=== PATIENT | female | born 1950 | race Caucasian/White ===

== ENCOUNTER 2023-02-26 11:40 | Emergency (ER) | payer MEDICARE, BC, MEDICAID, SELFPAY ==
[2023-02-26 11:48] VITALS: BP 159/79; PULSE 96; RESP 18; TEMP 36.9; O2SAT 99; BMI 22.2
--- NOTE | 2023-02-26 11:59 | CRLHL7_ITS ---
For Patients: As a result of the Century Cures Act, medical imaging exams and procedure reports are released immediately into your electronic medical record. You may view this report before your referring provider. If you have questions, please contact your health care provider. INDICATION: Right lower leg pain. FINDINGS: Two views of the right tibia and fibula were obtained. There is no acute fracture seen or dislocation. There has been resection of the midportion of the shaft of fibula. IMPRESSION: No acute bone abnormality. Dictated by Alexandre Esquivel MD @ 02/26/2023 12:49:13 PM (Electronically Signed)
--- NOTE | 2023-02-26 11:59 | CRLHL7_ITS ---
For Patients: As a result of the Century Cures Act, medical imaging exams and procedure reports are released immediately into your electronic medical record. You may view this report before your referring provider. If you have questions, please contact your health care provider. INDICATION: Leg pain and swelling. TECHNIQUE: Ultrasound venous duplex lower left extremity. Compression venous exam was performed using garcia-scale, color Doppler, and spectral Doppler analysis. COMPARISON: None. FINDINGS: Deep veins: Fully compressible with normal color Doppler blood flow. Superficial veins: Greater saphenous vein is fully compressible. No popliteal cyst. IMPRESSION: No evidence of DVT. Dictated by Carlos Genao MD @ 02/26/2023 2:08:04 PM (Electronically Signed)
--- NOTE | 2023-02-26 12:08 | ED.GENADULT ---
HPI - General Adult General Time Seen by Provider: 12:08 Date Seen: 02/26/23 Chief complaint: Extremity Pain/Injury, Lower Stated complaint: L leg swelling Time Seen by Provider: 02/26/23 11:44 History of Present Illness HPI narrative: This is a pleasant 72-year-old female accompanied to the ER today by her daughter. 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 She had skin graft and bone graft taken from both of her legs. Treatment was about 3 years ago. She also reports a history of anxiety/depression. In review of her past medical history she also has his a history of recurrent pancreatitis, pancreatic insufficiency, hypertension, dyslipidemia, alcohol abuse, L2 compression fracture, vitamin-D deficiency. She is currently on Ativan and sertraline. No other meds. She is unsure of her allergies, probably penicillin and possibly some others. She reports that she has chronic scars on both of her legs because of her bone graft surgeries. She also has and chronic nonhealing scab on the scar over her left lateral calf. She does get pain in her calves and lower legs from time to time ever since she had her bone graft. She says ?I know I need to see my surgeon about that. ? She says she has been having pain affecting her mid anterior and distal moreno/tibia for about a month. It has been getting slowly, steadily worse. She does not have any recent twisting or injury or fall. No numbness or tingling or weakness. No pain in her knee, ankle, or foot. She does have a little bit of swelling on the anterior lower moreno. In particular it has gotten more noticeable over the past 1-3 days. She has also noticed small red streak of erythema on the anterior moreno. She has not had a fever. No real change in the chronic scab on the lateral side of her leg. She does have about a 1 cm scab that just will not heal. No definite new redness around that. No purulent drainage. No definite lateral or posterior erythema. No pain down into her foot. Pain has gotten so intense that she has feeling like she can barely bear weight. She has been taking ibuprofen, at least 3 times a day, but is no longer helpful. No other color changes cyanosis. No pain in her right leg. No back pain. No fever. She does not have diabetes or immunosuppression. Related Data Home Medications Medication Instructions Recorded Confirmed lorazepam 0.5 mg tablet PO 02/26/23 sertraline 100 mg tablet 100 mg PO DAILY 02/26/23 02/26/23 Previous Rx's Medication Instructions Recorded cephalexin 500 mg capsule 500 mg PO QID 7 days #28 caps 02/26/23 cephalexin 500 mg capsule 500 mg PO QID 7 days #28 caps 02/26/23 Allergies Allergy/AdvReac Type Severity Reaction Status Date / Time Penicillins Allergy Intermediate Verified 02/26/23 12:04 Exam Narrative: Exam Narrative: Constitutional: Appears well-developed and well-nourished. Alert. Conversant. Non toxic. Polite. Daughter attentively at her side. HENT: Head: Atraumatic. Nose: Nose normal. Mouth/Throat: Wearing a face mask and prefers not to remove it. No oropharyngeal complaints. Eyes: Conjunctivae normal. EOM normal. Pupils equal, round, and reactive to light. No scleral icterus. Neck: Normal range of motion. Neck supple. No tracheal deviation present. No JVD Cardiovascular: Normal rate, regular rhythm. No gallop. No friction rub. No murmur heard. Symmetric PT and DP artery pulses . Skin of both feet is warm, pink, well perfused, with normal cap refill. Pulmonary/Chest: Effort normal. No stridor. No respiratory distress. No wheezes. No rales. No rhonchi . Abdominal: Soft. Bowel sounds normal. No distension. No mass. No tenderness. No rebound. No guarding. Musculoskeletal: RUE: Normal range of motion. No tenderness. No deformity LUE: Normal range of motion. No tenderness. No deformity RLE: Normal range of motion. No edema. No tenderness. No deformity. She has scars on her anterolateral thigh from skin graft harvest and on her lateral lower leg from previous bone graft harvest. Scars appear to be well-healed. LLE: Normal range of motion In her hip, knee, ankle. She has a scar on her anterior lateral thigh from skin graft is well healed. She has a scar on her lateral calf. This does appear to be dehisced wound which is healed by secondary intention. The scar is roughly 2 x 4 cm in oval shape. At the distal/posterior rim of this there is a 1 cm area of scab that is apparently the chronic wound will not heal. There is no definite surrounding erythema there. Perhaps a little bit of pinkness of the scar, but that maybe it is chronic appearance. She is tender over the distal half of the tibia and fibula. There is a subtle area of erythema. It appears to be a streak almost like ascending lymphangitis extending from the midportion of the anterior moreno, medial to the tibial spine extending distally and aligned down to the distal moreno. An is a few cm proximal to the ankle. There is no apparent redness or swelling of the ankle, malleoli, dorsum of the foot, or toes. She does have chronic deformity of her toes and hammertoe. No signs of toe infection, ulcers, gangrene. Subtle edema affecting the distal 1/2 of her moreno down to the ankle. No foot edema. Lymph: No cervical adenopathy. Neurological: Alert and oriented to person, place, and time. Normal strength. CN II-VII intact. No sensory deficit. GCS eye subscore is 4. GCS verbal subscore is 5. GCS motor subscore is 6. Normal coordination . Intact distal toe wiggling, sensory function including the medial and lateral malleolus, dorsal 1st webspace, sole of the foot. Skin: Skin is warm and dry. No rash noted. No pallor. Normal capillary refill. Psychiatric: Normal mood. Normal affect. Const: Vital Signs, click to edit/add: Vital Signs - 24 hr 02/26/23 11:48 Temperature 98.4 F Pulse Rate [Pulse Oximeter] 96 Respiratory Rate 18 Blood Pressure [Ri ght Upper Arm] 159/79 H Pulse Oximetry 99 Oxygen Delivery Me thod Room Air Course Course Hospital Course: Recheck-sitting up in the chair next to her hospital bed. Two daughters are not present. Discussed results with patient and her family. They are comfortable with plan of trying empiric antibiotics, pain control and watchful monitoring at home.. Reevaluation(s) Reevaluation #2: m. Vital Signs Vital signs: Initial Vital Signs Temperature 98.4 F 02/26/23 11:48 Temperature Source Temporal Artery Scan 02/26/23 11:48 Pulse Rate 96 02/26/23 11:48 Respiratory Rate 18 02/26/23 11:48 Blood Pressure 159/79 H 02/26/23 11:48 Blood Pressure Mean 105 02/26/23 11:48 Blood Pressure Position Supine 02/26/23 11:48 Pulse Oximetry 99 02/26/23 11:48 Oxygen Delivery Method Room Air 02/26/23 11:48 Vital Signs Temperature 98.4 F 02/26/23 11:48 Pulse Rate 96 02/26/23 11:48 Respiratory Rate 18 02/26/23 11:48 Blood Pressure 159/79 H 02/26/23 11:48 Pulse Oximetry 99 02/26/23 11:48 Oxygen Delivery Method Room Air 02/26/23 11:48 Temperature 98.4 F 02/26/23 11:48 Pulse Rate 96 02/26/23 11:48 Respiratory Rate 18 02/26/23 11:48 Blood Pressure 159/79 H 02/26/23 11:48 Pulse Oximetry 99 02/26/23 11:48 Oxygen Delivery Method Room Air 02/26/23 11:48 Medical Decision Making MDM Narrative Medical decision making narrative: This is a pleasant 72-year-old female presenting to the ER today with pain, swelling redness, affecting the distal half of her left moreno in particular with a red streak that it is suspicious for an infection or ascending lymphangitis affecting the moreno. She does have a distant history of previous bone graft harvest from her lower leg (probably her distal fibula) with a scar overlying the skin there the does have a small chronic nonhealing scab. Suspicion is for possible evolving cellulitis. Exam does not reveal any evidence for crepitus or gas in the soft tissue or any abscess. Laboratory workup shows normal white blood cell count. Normal CRP. BMP does show low sodium with sodium of 125 and also slightly low bicarb at 18. Anion gap is 16. BUN and creatinine normal. Glucose normal. Patient reports poor oral intake at home. Suspect low bicarb is probably related to dehydration. She is hemodynamically stable. She is able to tolerate oral here in the ER and she is confident that she can stay hydrated at home. No recent trauma. X-ray of the tibia and fibula was obtained to evaluate for possible stress fracture. X-ray showed no acute finding. She has had the previous bone graft harvest surgery.. DVT ultrasound is negative. Patient has palpable strong distal pulses with normal distal cap refill. No clear evidence for acute limb ischemia/peripheral artery disease. No associated back pain or any numbness in the leg to suggest lumbar radiculopathy. Discussed with the patient and her daughters that at this point the exact cause of her pain is not clear but she does have a small streak of erythema which could be an early evolving cellulitis. No evidence for associated foot or toe infection to suggest that this streak is ascending lymphangitis. Will treat her with a course of cephalexin. Discussed the need for close monitoring at home. Return to the ER immediately if spreading redness, worsening pain , fever or signs of worsening infection. Also discussed that she needs to return immediately if she develops concerning symptoms such as numbness, weakness, or back pain that might suggest a lumbar source for her leg pain, pallor or discoloration that might suggest an arterial disease source for her pain. Recommended close outpatient follow-up to recheck her sodium and BMP. Questions answered. Prescriptions for Cecilia and cephalexin provided. Opiate precautions reviewed.. Lab Data Labs: Lab Results 02/26/23 Range/Units 12:17 WBC 5.72 (4.50-11.00) K/uL RBC 2.96 L (4.00-5.20) m/uL Hgb 9.2 L (12.0-16.0) gm/dL Hct 26.8 L (33.0-51.0) % MCV 91 (80-100) fL MCH 31 (26-34) pg MCHC 34 (32-36) gm/dL RDW Coeff of Marilyn 13.0 (11.5-15.5) % Plt Count 119 L (140-440) K/uL Neut % (Auto) 58.3 (42.0-72.0) % Lymph % (Auto) 27.1 (20-44) % [place] % (Auto) 9.3 (0.0-11.0) % Eos % (Auto) 3.1 (0.0-7.0) % Baso % (Auto) 0.5 (0.0-3.0) % Neut # (Auto) 3.33 (1.7-7.0) K/uL Lymph # (Auto) 1.55 (0.90-2.90) K/uL [place] # (Auto) 0.50 (0.00-0.90) K/UL Eos # (Auto) 0.18 (0.00-0.50) K/uL Baso # (Auto) 0.03 (0.00-0.30) K/uL Abs Immat Gran (auto) 0.10 (0.00-0.30) K/uL Imm/Tot Granulo (auto) 1.7 % Sodium 125 L (135-149) mmol/L Potassium 3.9 (3.6-5.1) mmol/L Chloride 91 L (96-114) mmol/L Carbon Dioxide 18 L (20-32) mmol/L Anion Gap 16 H (7-15) mEq/L BUN 16 (7-30) mg/dL Creatinine 0.9 (0.5-1.5) mg/dL Estimated Creat Clear 41.23 Estimated GFR 69 ml/min Glucose 86 (60-115) mg/dL Calcium 9.0 (8.4-10.6) mg/dL C-Reactive Protein 0.6 (0.5-1.0) mg/dL Imaging Data Ultrasound left leg: Attestation: I have reviewed the pertinent imaging results. Radiologist's impression: FINDINGS: Deep veins: Fully compressible with normal color Doppler blood flow. Superficial veins: Greater saphenous vein is fully compressible. No popliteal cyst. IMPRESSION: No evidence of DVT XR Left tib/fib: Radiologist's impression: IMPRESSION: No acute bone abnormality. Discharge Plan Discharge Clinical Impression: Cellulitis, Hyponatremia Patient Disposition: Home, Self-Care Condition: Stable Instructions: Cellulitis (ED), Hyponatremia (ED) Additional Instructions: Please monitor your leg carefully. We expect the pain in the redness to gradually improve over the next 48-72 hours. If you are getting worse (worsening pain, spreading redness, fever or if you develop other concerning symptoms such as pallor, bluishness, or numbness in your foot) return to the ER immediately to be recheck. Prescriptions: New cephalexin 500 mg capsule 500 mg PO QID 7 Days Qty: 28 0RF cephalexin 500 mg capsule 500 mg PO QID 7 Days Qty: 28 0RF No Action sertraline 100 mg tablet 100 mg PO DAILY lorazepam 0.5 mg tablet PO Follow Up/Referrals: Jodi Mabry DO [Primary Care Provider] - [facility]
[2023-02-26 12:26] LABS: Basophils Absolute Auto 0.03 K/uL (0.00-0.30); Basophils Percent Auto 0.5 % (0.0-3.0); Eosinophils Absolute Auto 0.18 K/uL (0.00-0.50); Eosinophils Percent Auto 3.1 % (0.0-7.0); Hematocrit 26.8 % (33.0-51.0); Hemoglobin* 9.2 gm/dL (12.0-16.0); Immature Granulocytes Pct Auto 1.7 %; Lymphocytes Absolute Auto 1.55 K/uL (0.90-2.90); Lymphocytes Percent Auto 27.1 % (20-44); Mean Corpuscular HGB Conc 34 gm/dL (32-36); Mean Corpuscular Hemoglobin 31 pg (26-34); Mean Corpuscular Volume 91 fL (80-100); Monocytes Percent Auto 9.3 % (0.0-11.0); Neutrophils Absolute Auto 3.33 K/uL (1.7-7.0); Neutrophils Percent Auto 58.3 % (42.0-72.0); Platelet Count* 119 K/uL (140-440); Red Blood Count 2.96 m/uL (4.00-5.20); White Blood Count* 5.72 K/uL (4.50-11.00)
[2023-02-26 12:29] LABS: Slide Review Reflex No
[2023-02-26 12:47] LABS: Chloride* 91 mmol/L (96-114); Sodium* 125 mmol/L (135-149)
[2023-02-26 12:48] LABS: Potassium* 3.9 mmol/L (3.6-5.1)
[2023-02-26 12:50] LABS: Creatinine* 0.9 mg/dL (0.5-1.5); Est. Creatinine Clearance* 41.23; Estimated Glomerular Filt Rate 69 ml/min
[2023-02-26 12:51] LABS: Anion Gap 16 mEq/L (7-15); Blood Urea Nitrogen* 16 mg/dL (7-30); Carbon Dioxide* 18 mmol/L (20-32); Glucose* 86 mg/dL (60-115)
[2023-02-26 12:54] LABS: C Reactive Protein* 0.6 mg/dL (0.5-1.0)
[2023-02-26] MEDS: cephALEXin 500 MG CAPSULE PO (14:57)
== END 2023-02-26 15:00 | disposition home or self-care (01) ==
PROVIDERS: Emergency Provider Emergency Medicine; PCP Family Medicine
DX: L03.116 Cellulitis of left lower limb (principal); E87.1 Hypo-osmolality and hyponatremia
CPT/HCPCS: 36415; 73590; 80048; 85025; 86140; 93971; 99283; 99284; 99285; A9270

== ENCOUNTER 2023-03-05 12:16 | Emergency (ER) | payer MEDICARE, BC, MEDICAID, SELFPAY ==
[2023-03-05 12:41] VITALS: BP 134/84; PULSE 87; RESP 16; TEMP 36.7; O2SAT 98; BMI 22.6
--- NOTE | 2023-03-05 14:25 | CRLHL7_ITS ---
For Patients: As a result of the Century Cures Act, medical imaging exams and procedure reports are released immediately into your electronic medical record. You may view this report before your referring provider. If you have questions, please contact your health care provider. INDICATION: Pain. History of bone graft. History cancer. COMPARISON: Plain film 26 February 2023. TECHNIQUE: 55 mL Isovue-370 IV contrast. FINDINGS: Partial resection of the fibular diaphysis. Hudson margins of the proximal and distal remnants. No intervening fluid or mass. No abnormal enhancement. Surgical clips in the posterior tibial neurovascular bundle. IMPRESSION: Partial resection of the fibula presumably for bone grafting. No CT evidence for complication. Please note that all CT scans at this facility use dose modulation, iterative reconstruction, and/or weight-based dosing when appropriate to reduce radiation dose to as low as reasonably achievable. Dictated by Adalberto Bran MD @ 03/05/2023 4:02:10 PM (Electronically Signed)
[2023-03-05 15:20] VITALS: PULSE 75; RESP 20; O2SAT 97
[2023-03-05 15:36] VITALS: BP 151/82
[2023-03-05 16:00] VITALS: BP 159/79; PULSE 76; RESP 20; O2SAT 95
--- NOTE | 2023-03-05 16:40 | ED.GENADULT ---
HPI - General Adult General Date Seen: 03/05/23 Chief complaint: Extremity Pain/Injury, Lower Stated complaint: L leg infection Time Seen by Provider: 03/05/23 14:08 Source: patient Mode of arrival: ambulatory Limitations: no limitations History of Present Illness HPI narrative: Patient is a 72-year-old woman with a history of bone grafting from her left lower leg secondary to squamous cell cancer. She was seen here last week because she was having pain there was a question of possible infection. She had multiple studies including blood work, x-ray, ultrasound all of which were negative. She was sent out on Keflex which she has completed. She has not followed up, she says that her primary doctor wanted her to finish her antibiotics and see how she did. She reports that she completed her antibiotics but still has pain. She has also gone through all of her pain medications and would like more pain medications. She has not had any trauma to that area, there was a question of a red streak last week which seems to have probably resolved, there has not been significant swelling she does not think. She has pain in the moreno area, she says she can barely walk and is using a walker. Related Data Home Medications Medication Instructions Recorded Confirmed lorazepam 0.5 mg tablet 0.5 mg PO 02/26/23 sertraline 100 mg tablet 100 mg PO DAILY 02/26/23 03/05/23 [id number] 1 cap PO BID 03/05/23 03/05/23 12,000-38,000-60,000 unit capsule,delayed rel (Creon) mirtazapine 15 mg tablet PO 03/05/23 tizanidine 2 mg tablet 2 mg PO 3XD 03/05/23 03/05/23 Previous Rx's Medication Instructions Recorded lidocaine 5 % topical patch 1 patch topical DAILY #15 ea 03/05/23 oxycodone 5 mg tablet 5 mg PO Q6H PRN pain #4 tabs 03/05/23 Allergies Allergy/AdvReac Type Severity Reaction Status Date / Time Penicillins Allergy Intermediate Verified 03/05/23 12:38 PFSH PFSH Social History Smoking Status: Never smoker Do you use any of these nicotine containing products: None How often do you have a drink containing alcohol: never How often do you have six or more drinks on one occasion: Never AUDIT-C Alcohol total score: 0 Non-prescribed substance use: denies use service: No Exam Narrative: Exam Narrative: Vital signs reviewed In general, alert, nontoxic woman. Extremities: Examination of the left lower leg shows old scarring on the lateral lower leg. There is a pinkish tone to the skin consistent with scar tissue but there is nothing erythematous to suggest cellulitis. She has diffuse tenderness to light touch, particularly to the medial lower leg. There is no edema, no warmth, no masses. Pulses are intact. Skin: Warm dry well perfused. No rashes or lesions. Old scarring as described above. Const: Vital Signs, click to edit/add: Vital Signs - 24 hr 03/05/23 12:41 03/05/23 15:20 03/05/23 15:36 Temperature 98.1 F Pulse Rate [Pulse Oximeter] 87 75 Respiratory Rate 16 20 Blood Pressure [Le ft Upper Arm] 134/84 151/82 H Pulse Oximetry 98 97 Oxygen Delivery Me thod Room Air Room Air Course Course ED Course: I offered to do a CT scan to make sure that there were no deeper issues that we had not identified last week. This was done with contrast and read by Radiology as negative for any acute findings. Discussed that I do not have an explanation for her pain. Perhaps this represents some sort of complex regional pain syndrome. It does not appear to be a radiculopathy to me given that she has this intense tenderness to light touch which does not seem consistent with a radiculopathy, likewise she describes significant difficulty with weight-bearing which does not seem consistent with radiculopathy. She requested additional pain medications. I have reviewed the prescription monitoring database. She has a number prescriptions for benzodiazepines but aside from the prescription last week she does not actually have a lot of narcotic prescriptions. Did review with her that this type of pain is not generally a good fit for narcotics as it will quite possibly be more of a chronic type pain and this is something that we do not like to use narcotics for out of the emergency department. She is insistent that she needs something as she is not able to walk. I have agreed to give her for additional oxycodone so that she can make it until tomorrow, at which time I have told her she needs to call her regular clinic doctor and make some sort of arrangement for additional pain medication if that is what she feels she needs. In the meantime, I have suggested that she try lidocaine patches to see if that provides her any relief in addition to Tylenol 3 times daily. Primary care follow-up at the earliest possible date. No further narcotics for this problem from the emergency department. Vital Signs Vital signs: Initial Vital Signs Temperature 98.1 F 03/05/23 12:41 Temperature Source Temporal Artery Scan 03/05/23 12:41 Pulse Rate 87 03/05/23 12:41 Pulse Rhythm Regular 03/05/23 12:41 Pulse Strength 3+ Normal 03/05/23 12:41 Respiratory Rate 16 03/05/23 12:41 Blood Pressure 134/84 03/05/23 12:41 Blood Pressure Mean 100 03/05/23 12:41 Blood Pressure Position Sitting 03/05/23 12:41 Pulse Oximetry 98 03/05/23 12:41 Oxygen Delivery Method Room Air 03/05/23 12:41 Vital Signs Temperature 98.1 F 03/05/23 12:41 Pulse Rate 87 03/05/23 12:41 Respiratory Rate 16 03/05/23 12:41 Blood Pressure 134/84 03/05/23 12:41 Pulse Oximetry 98 03/05/23 12:41 Oxygen Delivery Method Room Air 03/05/23 12:41 Temperature 98.1 F 03/05/23 12:41 Pulse Rate 75 03/05/23 15:20 Respiratory Rate 20 03/05/23 15:20 Blood Pressure 151/82 H 03/05/23 15:36 Pulse Oximetry 97 03/05/23 15:20 Oxygen Delivery Method Room Air 03/05/23 15:20 Medical Decision Making Lab Data Labs: Lab Results 03/05/23 Range/Units 14:46 POC Creatinine 1.0 (0.6-1.3) mg/dl Discharge Plan Discharge Clinical Impression: Lower extremity pain, left Patient Disposition: Home, Self-Care Condition: Stable Instructions: Leg Pain (ED) Additional Instructions: Lidocaine patches as prescribed. Tylenol 1000 mg 3 times daily. Oxycodone if needed for severe pain. As discussed, we cannot fill further oxycodone from the emergency department. You need to call your doctor today or tomorrow if you need any further stronger pain medications. Prescriptions: New oxycodone 5 mg tablet 5 mg PO Q6H PRN (Reason: pain) Qty: 4 0RF lidocaine 5 % adhesive patch,medicated 1 patch topical DAILY Qty: 15 0RF Rx Instructions: leave on most painful area for up to 12 hrs No Action sertraline 100 mg tablet 100 mg PO DAILY lorazepam 0.5 mg tablet 0.5 mg PO Creon 12,000-38,000 -60,000 unit capsule,delayed release(DR/EC) 1 cap PO BID tizanidine 2 mg tablet 2 mg PO 3XD mirtazapine 15 mg tablet PO Follow Up/Referrals: Jodi Mabry DO [Primary Care Provider] - Stand Alone [facility]
== END 2023-03-05 16:35 | disposition home or self-care (01) ==
PROVIDERS: Emergency Provider Emergency Medicine; PCP Family Medicine
DX: M79.662 Pain in left lower leg (principal)
CPT/HCPCS: 73701; 82565; 99283; 99284; Q9967

== ENCOUNTER 2023-03-17 10:47 | Outpatient (CLI) | payer MEDICARE, BC, MEDICAID, SELFPAY | END 2023-03-17 10:48 | disposition home or self-care (01) | LOC: AMB 03-22 14:46 | PROVIDERS: PCP Family Medicine; Visit Provider Family Medicine | DX: M79.605 Pain in left leg (principal) | CPT/HCPCS: A0425; A0433 ==

== ENCOUNTER 2023-12-06 20:05 | Outpatient (CLI) | payer MEDICARE, BC, SELFPAY ==
--- OUTSIDE RECORDS SUMMARY | 2023-12-07 18:21 | XMS_ITS | Clinical Summary ---
Author Organization [employer] [facility] Address [place], [place] [address] Care Team Providers Care Sewage Plant Attendant Name Role Phone Jodi Mabry DO Primary Care Provider [facility] [place] Unavailable Odette Hunter MD Unavailable Unava Jody Heredia RN, BSN Unavailable [phone] Allergies Active Allergy Reactions Criticality Noted Date [...] AFTER USE 1800 mL 2 07/26/2023 Active fmwwnw-fkirqobc-nvo lase (Zenpep) 10,000-32,000 -42,000 unit cpDRIndications:Matson creatic insufficiency Take 1 Capsule by mouth three times daily with meals. 180 Capsule 4 08/01/2023 Active ctwqdd-nvtwymey-skl lase (Creon) 12,000-38,000 -60,000 unit cpDR delayed-release [...] many years ago. Work up done outside [facility] euthyroidism 04/20/2018 Hypovitaminosis D 04/20/2018 Alcohol dependence [...] Type Department Care Team Description 10/05/[address] [facility] [address] [place], [place] [id number] Jodi Mabry DO Refill Request (Creon) from [...] Comments Blood Pressure 150/66 08/02/2023 10:52 AM LICENSED NURSING ASSISTANT Pulse 77 08/02/2023 10:52 AM LICENSED NURSING ASSISTANT Temperature 36.6 ??C (97.8 ??F) 07/20/2023 8:10 AM CS T Respiratory Rate 18 07/20/2023 8:10 AM LICENSED NURSING ASSISTANT Oxygen Saturation 90% 07/20/2023 8:10 AM LICENSED NURSING ASSISTANT Inhaled Oxygen Concentration - - Weight 54.1 kg (119 lb 4.3 oz) 07/19/2023 6:11 A M LICENSED NURSING ASSISTANT Height 149.9 cm (4' 11) 08/02/2023 10:52 AM LICENSED NURSING ASSISTANT Body Mass Index 24.09 07/19/2023 6:11 AM LICENSED NURSING ASSISTANT Plan of Treatment Health Maintenance Due Date [...] 02/02/2020, 09/18/2016 Medical Devices Implanted Type Area Lead Cytogenetic Technologist Device Identifier Shelf Expiration Date Model / Serial / Lot Tower Climber 3.0mm Implanted:Qty: 1 on 04/14/2020 by Odette Hunter MD at [facility] Left: Neck [employer] 01/23/2024 [id number] / [id number] / [id number] Tower Climber 3.5mm Implanted:Qty: 1 on 04/20/2020 by Odette Hunter MD at [facility] Left: See Notes 04/07/2023 [id number] / / [id number] Description:Face 2.0 Titanium Matrixmandible Locking Screws, Self-Tapping Implanted:Qty: 5 on 04/20/2020 by Odette Hunter MD at [facility] Left: See Notes tomoguides 04.503.608. 01 / / N/A Description:Face 2.0 Titanium Matrixmandible Locking Screws, Self-Tapping Implanted:Qty: 5 on 04/20/2020 by Odette Hunter MD at [facility] Left: See Notes tomoguides 04.503.610. 01 / / N/A Description:face 2.0 Titanium Matrixmandible Locking Screws, Self-Tapping Implanted:Qty: 1 on 04/20/2020 by Odette Hunter MD at [facility] Left: See Notes tomoguides [id number]. 01 / / N/A Description:face 2.4mm Titanium Matrixmandible Locking Screws, Self Tapping Implanted:Qty: 1 on 04/20/2020 by Odette Hunter MD at [facility] Left: See Notes tomoguides 04.503.638. 01 / / N/A Description:face 2.4mm Titanium Matrixmandible Locking Screws Implanted:Qty: 1 on 04/20/2020 by Odette Hunter MD at [facility] Left: See Notes tomoguides 04.503.640. 01 / / N/A Description:face Titanium Matrix Mandible Angle Reconstruction Plates Implanted:Qty: 1 on 04/20/2020 by Odette Hunter MD at [facility] Left: Mandible tomoguides 04.503.732 / / Tower Climber 3.0mm Implanted:Qty: 1 on 04/20/2020 by Odette Hunter MD at [facility] Left: See Notes [facility] [facility] 09/01/2024 [id number] / / [id number] Description:Cheek Trigen Kenova-Nail Tibial Nail [id number]-4v 10mm X 28cm Implanted:Qty: 1 on 03/17/2023 by Tyson Poole MD at [facility] Left: Tibia [employer] 03/30/2032 [id number] / / [id number] Screw Bone 5x25mm Trigen Low Profile - [id number] Implanted:Qty: 1 on 03/17/2023 by Tyson Poole MD at [facility] Left: Tibia [employer] 11/30/2032 [id number] / / [id number] Screw Bone 5.0x27.5mm Trigen Nasim Low Profile Titnm - [id number] Implanted:Qty: 1 on 03/17/2023 by Tyson Poole MD at [facility] Left: Tibia [employer] 11/30/2032 [id number] / / [id number] Screw Bone 5.0x32.5mm Trigen Low Profile - [id number] Implanted:Qty: 1 on 03/17/2023 by Tyson Poole MD at [facility] Left: Tibia [employer] 11/30/2032 [id number] / / [id number] Screw Bone 5.0x42.5mm Trigen Nasim Low Profile Titnm - [id number] Implanted:Qty: 1 on 03/17/2023 by Tyson Poole MD at [facility] Left: Tibia [employer] 08/04/2032 [id number] / / [id number] Mesh Ventral 15cm Ventral[address] St W/Echo2 - [id number] Implanted:Qty: 1 on 07/19/2023 by Torres Glover MD at [facility] N/A: Abdomen [employer] 11/20/2023 [id number] / / [id number] Explanted Type Area Lead Cytogenetic Technologist Device Identifier Shelf Expiration Date Model / Serial / Lot Patient Specific 2.0 Plate Implanted:Qty: 1 on 04/14/2020 by Odette Hunter MD at [facility] Explanted:Qty: 1 on 04/20/2020 at [facility] Left: Mandible tomoguides 449.503B / / 2.0 Titanium Matrixmandible Locking Screws, Self-Tapping Explanted:Qty: 2 on 04/20/2020 at [facility] Left: See Notes tomoguides 04.503.61 0.01 / / N/A Description:face M04.503.606.01 - [id number] Implanted:Qty: 3 on 04/14/2020 by Odette Hunter MD at [facility] Explanted:Qty: 3 on 04/20/2020 by Phill Bermudez MD at [facility] Left: Mandible Depuy Synthes 10sec .60 6.01 / / M04.503.608.01 - [id number] Implanted:Qty: 3 on 04/14/2020 by Phill Bermudez MD at [facility] Explanted:Qty: 3 on 04/20/2020 by Phill Bermudez MD at [facility] Left: Mandible Depuy Synthes 10sec 60 8.01 / / Description:Titanium MatrixM ANDIBLE locking screws, self-tapping M04.503.638.01 - [id number] Implanted:Qty: 2 on 04/14/2020 by Phill Bermudez MD at [facility] Explanted:Qty: 2 on 04/20/2020 at [facility] Left: Mandible Depuy Synthes 10sec .63 8.01 / / Description:2.4 mm titanium MatrixMandible Locking screws, self tapping M03.503.408 - [id number] Implanted:Qty: 1 on 04/14/2020 by Phill Bermudez MD at [facility] Explanted:Qty: 1 on 04/20/2020 at [facility] Left: Mandible Depuy [place]ro .40 8 / / Description:j-latch with 8mm stop, 50 mm M03.503.477 - [id number] Implanted:Qty: 1 on 04/14/2020 by Phill Bermudez MD at [facility] Explanted:Qty: 1 on 04/20/2020 at [facility] Left: Mandible Depuy Synthes 10sec .47 7 / / Description:Daniel Casas tch, [...] SCREEN FFDM (IA) Routine 05/26/2015 3:44 PM LICENSED NURSING ASSISTANT Visit for screening mammogram from Last 3 Months or Most Recently Relevant to Health Maintenance Results * (ABNORMAL) LIPID PANEL W REFLEX MEASURED LDL (01/12/2023 3:59 PM CDT) CHOLESTEROL,TOTAL 204(H) 100 - 199 mg/dL 01/15/2023 4:01 PM CDT [facility] Comment: Cholesterol, Total Reference Ranges Desirable <200 mg/dL Borderline 200-239 mg/dL High >=240 mg/dL TRIGLYCERIDES 145 <150 mg/dL 01/15/2023 4:01 PM CDT [facility] HDL CHOLESTEROL 68 >40 mg/dL 4:01 PM CDT [facility] NON-HDL CHOLESTEROL 136 <145 mg/dl 01/15/2023 4:01 PM CDT [facility] CHOL/HDL RATIO 3.00 <4.50 01/15/2023 4:01 PM CDT [facility] LDL CHOLESTEROL 107 <=130 mg/dL 01/15/2023 4:01 PM CDT [facility] VLDL CHOLESTEROL 29 <=30 mg/dL 01/15/2023 4:01 PM CDT [facility] PROVIDER ORDERED STATUS RANDOM 01/15/2023 4:01 PM CDT [facility] Blood BLOOD SPECIMEN / Unknown Venipuncture / Unknown 01/12/2023 3:59 PM CDT 01/12/2023 3:59 PM CDT Jodi Mabry DO CHEMISTRY [facility] [address] [place] [address], * OCCULT BLOOD IFOBT STOOL (09/18/2021 4:02 PM CDT) STOOL BLOOD ,IFOBT Negative Negative 09/23/2021 10:17 AM CDT [facility] Stool STOOL SPECIMEN / Unknown Non-Blood / Unknown 09/18/2021 4:02 PM CDT 09/21/2021 4:03 PM CDT Jodi Mabry DO LABORATORY Performing Organization Address City/[facility] Co de Phone Number [facility] [address] [address], [place] [phone] * ACUTE HEPATITIS PANEL (02/02/2020 2:24 PM CDT) HEPATITIS C ANTIBODY Non-Reactive Non-Reactive 02/02/2020 9:36 PM CDT [facility] Comment:Antibodies to HCV no t detected; does not exclude the possibility of exposure to HCV. IGM ANTI HAV Non-Reactive Non-Reactive 02/02/20 20 9:36 PM CDT [facility] HBSAG Nonreactive Nonreactive 02/02/2020 9:36 PM CDT [facility] IGM ANTI HBC Non-Reactive Non-Reactive 02/02/20 9:36 PM CDT [facility] Blood BLOOD SPECIMEN / Unknown Venipuncture / Unknown 02/02/2020 2:24 PM CDT 02/02/2020 2:25 PM CDT Narrative [facility] - 02/02/2020 9:36 PM CDT Anti-HBc IgM not detected. Does not exclude the possibility of exposure to or infection with HBV. Jodi Mabry DO SEND OUTS Performing Organization Address City/[facility] Co de Phone Number [facility] [address] [place] [address], [place] * XR MAMMO BILAT SCREEN FFDM (05/26/2015 3:44 PM LICENSED NURSING ASSISTANT) Anatomical Region Laterality Modality BREASTS, Breast Left, Breast Right Bilateral Mammography Impressions 05/27/2015 3:47 PM LICENSED NURSING ASSISTANT ??There is no radiographic evidence for malignancy. ??Recommend annual mammograms. A lay language report of this examination will be provided to the patient. MAMMOGRAM ASSESSMENT: ??ACR 1 Negative Narrative 05/27/2015 3:47 PM LICENSED NURSING ASSISTANT XR MAMMO BILAT SCREEN FFDM [G0202.0] CLINICAL [...] Documents on File Type Date Recorded Patient Manager Property Expl anation Healthcare Directive 04/14/2020 5:49 AM Power of Paper Deliverer 04/14/2020 5:46 AM * Full Code (Latest [...] Code Status Discussion: Not Discussed Care Teams Sewage Plant Attendant Relationship Specialty Start Date End Date Jodi Mabry DO [address] [place] [address] PCP - General Family Practice 06/29/23 [facility] [address] [address] 04/22/18 [place] [address] [place] [id number] Surgery - Otolaryngology 04/08/20 Jody Juares, RN, BSN [address] [address] Cancer Rehab Care Coordination - [facility] Registered Nurse 06/15/20
== END 2023-12-06 20:06 | disposition home or self-care (01) ==
LOC: AMB 12-07 18:19
PROVIDERS: PCP Family Medicine; Visit Provider Family Medicine
DX: S89.92XA Unspecified injury of left lower leg, initial encounter (principal); W06.XXXA Fall from bed, initial encounter; Y92.121 Bathroom in nursing home as the place of occurrence of the external cause
CPT/HCPCS: A0425; A0429

== ENCOUNTER 2023-12-06 20:27 | Inpatient (IN) | payer MEDICARE, BC, SELFPAY ==
--- NOTE | 2023-12-06 20:31 | CRLHL7_ITS ---
For Patients: As a result of the Cures Act, medical imaging exams and procedure reports are released immediately into your electronic medical record. You may view this report before your referring provider. If you have questions, please contact your health care provider. Indication: FALL, PAIN Technique: Frontal view of the chest and frontal and oblique views of the left ribs Comparison: None Findings/impression : Suspected nondisplaced fracture of the left lateral 9th rib. There is some cortical irregularity of the left anterolateral 8th rib, may be an acute, nondisplaced fracture. Likely sequela of remote, healed left anterolateral 7th rib fracture. Severe compression fracture deformity of the L2 vertebral body. The cardiomediastinal silhouette and pulmonary vasculature are unremarkable. There is no focal airspace consolidation, pleural effusion, or pneumothorax. Dictated by Jovan Mcneill MD @ 12/06/2023 9:54:35 PM (Electronically Signed)
--- NOTE | 2023-12-06 20:31 | CRLHL7_ITS ---
For Patients: As a result of the Century Cures Act, medical imaging exams and procedure reports are released immediately into your electronic medical record. You may view this report before your referring provider. If you have questions, please contact your health care provider. INDICATION: Pelvic hip pain, fall TECHNIQUE: Pelvis radiograph, Hip radiograph 3 views left COMPARISON: None FINDINGS: Bone: No acute fractures or aggressive bone lesions are identified. Joint: The hip joints are unremarkable. The visualized sacroiliac joints are unremarkable in appearance. The pubic symphysis is normal in appearance. Soft tissue: Bilateral tubal ligation clips are noted. The visualized bowel gas pattern of the pelvis is unremarkable in appearance. No radiopaque foreign bodies are seen. IMPRESSION: 1. No acute osseous injuries or abnormalities are noted. Dictated by: Mustapha Pina MD @ 12/06/2023 21:18:18 (Electronically Signed)
--- NOTE | 2023-12-06 20:32 | ED.GENADULT ---
HPI - General Adult General Time Seen by Provider: 20:32 Date Seen: 12/06/23 Chief complaint: Fall/Minor Trauma Stated complaint: Fall Time Seen by Provider: 12/06/23 20:31 Source: patient, EMS and RN notes reviewed Mode of arrival: EMS Limitations: no limitations History of Present Illness HPI narrative: This 73-year-old female is brought in by EMS for concern of fall at her home earlier, happened some time after dinner. She couldn't get back up was crawling on her knees. She states that her left leg just gave out, was complaining of left hip and upper leg pain on that side per EMS. She completely lifts her left leg off the bed to about nearly 70 degree angle and points to the back of the left thigh where she felt the pain. Did not hit her head. Has no back pain with this, pain is not radiating down her left leg, no numbness or tingling noted. She states that she hit her left chest wall, ribs are a bit sore on that side but is not having any difficulty breathing, absolutely no shortness of breath. She maybe couldn't get back up for up to 2 hours but not longer. She is on no blood thinners. Patient states she does drink some alcohol occasionally but has not had any today. Related Data Home Medications ?Medication ?Instructions ?Recorded ?Confirmed lorazepam 0.5 mg tablet 0.5 mg PO 02/26/23 sertraline 100 mg tablet 100 mg PO DAILY 02/26/23 03/05/23 gbiuxb-[id number] 1 cap PO BID 03/05/23 03/05/23 12,000-38,000-60,000 unit capsule,delayed rel (Creon) mirtazapine 15 mg tablet PO 03/05/23 tizanidine 2 mg tablet 2 mg PO 3XD 03/05/23 03/05/23 Previous Rx's ?Medication ?Instructions ?Recorded lidocaine 5 % topical patch 1 patch topical DAILY #15 ea 03/05/23 oxycodone 5 mg tablet 5 mg PO Q6H PRN pain #4 tabs 03/05/23 Allergies Allergy/AdvReac Type Severity Reaction Status Date / Time Penicillins Allergy Intermediate Verified 03/05/23 12:38 PFSH PFSH Social History Smoking Status: Never smoker Do you use any of these nicotine containing products: None How often do you have a drink containing alcohol: never How often do you have six or more drinks on one occasion: Never AUDIT-C Alcohol total score: 0 Non-prescribed substance use: denies use service: No Exam Const: Vital Signs, click to edit/add: Vital Signs - 24 hr 12/06/23 20:33 12/06/23 21:51 Temperature 97.9 F Pulse Rate [Pulse Oximeter] 88 72 Respiratory Rate 16 16 Blood Pressure [Ri ght Upper Arm] 175/99 H 164/82 H Pulse Oximetry 96 96 Oxygen Delivery Me thod Room Air Room Air This very pleasant 73-year-old female is brought in by EMS. She is alert, interactive, no apparent distress. She actually moves herself from the ambulance cart to the ER bed. 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 Her speech is normal. Pupils are about 2-3 mm, reactive and symmetric. Sclera clear, conjugate gaze. Extraocular muscles are intact. No traumatic changes of her face. It no noted traumatic changes over the scalp or any palpable deformities. No midline tenderness of her neck or back. She is able to roll over under side, can visualize her back in see no traumatic changes. On her left lower anterolateral chest wall, she does have some chest wall bruising that is purplish. There is no underlying step-off, just minimally tender there. Abdomen is soft, no organomegaly, no masses, no rebound or guarding. She is lifting her legs off the bed moving her left hip around, we really no limitation range of motion. Her strength of her lower extremities is 5 5 and symmetric. She does have a little abrasion over the right anterior knee where she shows me where she was crawling on her knees. Moving upper extremities, no complaints of pain on range of motion throughout her upper extremities. Documenting provider has reviewed patient's vital signs: yes Course Course ED Course: This 73-year-old female reports a fall in her apartment where she resides independently. She denies any head injury, is complaining of left hip pain but is demonstrating remarkable range of motion of the hip. Does not seem like this is anything radiculopathic. She has a small bruise anterolateral lower chest wall but no step-off, no respiratory symptoms with this. Given her age, will do chest x-ray with left rib views just to ensure no significant traumatic chest wall trauma. There is anything concerning, may need to go to advanced imaging. Family is reportedly going to becoming, will talk with them once they are here as well. Reevaluation(s) Time of Reevaluation #1: 21:14 Reevaluation #1: Her 2 daughters are here now. Patient fell last week and reportedly hit her head quite hard, they were worried about a fall again today although patient is denying hitting her head today. They really would prefer a head CT. This is certainly not unreasonable, patients often can have non symptomatic traumatic subdurals. She is not notably been sick with anything but she does have chronic issues with this leg. 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 She has been left with pain in this leg and has had some chronic issues in the left leg. We reviewed that on my preliminary review, see an old probable rib fracture in the left anterior chest wall, I do not see any acute pathology on my preliminary review of her hip or the chest images. We discussed doing some blood work, will get CBC, comprehensive metabolic panel, lactate, troponin, CK and urinalysis. We will await the Radiology over-read of her images. At some point in the past, it does sound like she had a hairline fracture in some of the remaining bone in her left lower extremity that was not caught on imaging. Daughters are aware that we do start with plain films but certainly occult fractures or stress fractures may not be caught. Consultations Consultation #1: reviewed with hospitalist Dr. Santacruz. He accepts patient's care. Will add on an alcohol level and magnesium. Will give her some oral potassium replacement, started to 500 mL fluid bolus for her hypokalemia and hyponatremia respectively. She does have 8th and 9th rib fractures. Will update family and patient. Time: 22:33 Consultation #2: Dr. Srivastava is here seen the patient. Did let him know that her alcohol level is 0.07. Her magnesium is low as well at 1.4. Will order IV magnesium for her. Time: 23:09 Vital Signs Vital signs: Initial Vital Signs Temperature 97.9 F 12/06/23 20:33 Temperature Source Temporal Artery Scan 12/06/23 20:33 Pulse Rate 88 12/06/23 20:33 Respiratory Rate 16 12/06/23 20:33 Blood Pressure 175/99 H 12/06/23 20:33 Blood Pressure Mean 124 H 12/06/23 20:33 Blood Pressure Position Sitting 12/06/23 20:33 Pulse Oximetry 96 12/06/23 20:33 Oxygen Delivery Method Room Air 12/06/23 20:33 Vital Signs Temperature 97.9 F 12/06/23 20:33 Pulse Rate 88 12/06/23 20:33 Respiratory Rate 16 12/06/23 20:33 Blood Pressure 175/99 H 12/06/23 20:33 Pulse Oximetry 96 12/06/23 20:33 Oxygen Delivery Method Room Air 12/06/23 20:33 Temperature 97.9 F 12/06/23 23:24 Pulse Rate 72 12/06/23 23:24 Respiratory Rate 16 12/06/23 23:24 Blood Pressure 153/88 H 12/06/23 23:24 Pulse Oximetry 96 12/06/23 23:24 Oxygen Delivery Method Room Air 12/06/23 23:24 Medications Administered Medications: Generic Name Dose Route Start Last Admin Trade Name Freq PRN Reason Stop Dose Admin Sodium Chloride 500 mls @ 500 mls/hr 12/06/23 22:38 12/06/23 23:05 0.9 % Sodium Chloride 500 Ml IV 12/06/23 23:37 500 mls/hr .Q1H ONE Administration Potassium Bicarbonate 25 meq 12/06/23 22:38 12/06/23 23:05 Potassium Bicarb 25 Meq Effervescent Tab PO 12/06/23 22:39 25 meq ONCE ONE Administration Medical Decision Making Lab Data Lab results reviewed: Yes I reviewed the patient's lab results Labs: Lab Results 12/06/23 12/06/23 12/06/23 Range/Units 21:13 21:16 21:25 WBC 11.24 H (4.50-11.00) K/uL RBC 3.36 L (4.00-5.20) m/uL Hgb 10.3 L (12.0-16.0) gm/dL Hct 28.0 L (33.0-51.0) % MCV 83 (80-100) fL MCH 31 (26-34) pg MCHC 37 H (32-36) gm/dL RDW Coeff of Marilyn 12.9 (11.5-15.5) % Plt Count 108 L (140-440) K/uL Neut % (Auto) 87.4 H (42.0-72.0) % Lymph % (Auto) 6.9 L (20-44) % [place] % (Auto) 4.6 (0.0-11.0) % Eos % (Auto) 0.3 (0.0-7.0) % Baso % (Auto) 0.2 (0.0-3.0) % Neut # (Auto) 9.80 H (1.7-7.0) K/uL Lymph # (Auto) 0.80 L (0.90-2.90) K/uL [place] # (Auto) 0.50 (0.00-0.90) K/UL Eos # (Auto) 0.00 (0.00-0.50) K/uL Baso # (Auto) 0.00 (0.00-0.30) K/uL Abs Immat Gran (auto) 0.10 (0.00-0.30) K/uL Imm/Tot Granulo (auto) 0.6 % Sodium 117 L* (135-149) mmol/L Potassium 3.0 L (3.6-5.1) mmol/L Chloride 83 L (96-114) mmol/L Carbon Dioxide 15 L (20-32) mmol/L Anion Gap 19 H (7-15) mEq/L BUN 10 (7-30) mg/dL Creatinine 0.7 (0.5-1.5) mg/dL Estimated Creat Clear 42.49 Estimated GFR 92 ml/min Glucose 91 (60-115) mg/dL Calcium 8.6 (8.4-10.6) mg/dL Magnesium 1.4 L (1.5-2.6) mg/dL Total Bilirubin 0.8 (0.1-1.5) mg/dL AST 57 H (12-35) U/L ALT 23 (4-35) U/L Alkaline Phosphatase 105 (40-150) U/L Total Creatine Kinase 750 H (41-117) U/L Troponin I < 0.01 L (0.01-0.04) ng/mL Total Protein 8.0 (6.0-8.3) g/dL Albumin 5.3 H (3.3-5.0) g/dL Urine Color Yellow (Yellow) Urine Appearance Clear (Clear) Urine pH 7.0 (5.0-8.5) Ur Specific [place] 1.015 (1.000-1.030) Urine Protein Negative (Negative) Urine Glucose (UA) Negative (Negative) Urine Ketones Negative (Negative) Urine Blood Trace-intact A (Negative) Urine Nitrite Negative (Negative) Urine Bilirubin Negative (Negative) Urine Urobilinogen 0.2 (0.2-1.0) Ur Leukocyte Esterase Negative (Negative) Urine RBC 0-2 (0-2) Urine WBC 0-2 (0-5) Ur Squamous Epith Cells None (None-Few) Urine Bacteria Not Reportable Ethyl Alcohol 0.07 H (0.01-0.03) % Lab Acknowledgement Test Added 12/06/23 Range/Units 22:38 WBC (4.50-11.00) K/uL RBC (4.00-5.20) m/uL Hgb (12.0-16.0) gm/dL Hct (33.0-51.0) % MCV (80-100) fL MCH (26-34) pg MCHC (32-36) gm/dL RDW Coeff of Marilyn (11.5-15.5) % Plt Count (140-440) K/uL Neut % (Auto) (42.0-72.0) % Lymph % (Auto) (20-44) % [place] % (Auto) (0.0-11.0) % Eos % (Auto) (0.0-7.0) % Baso % (Auto) (0.0-3.0) % Neut # (Auto) (1.7-7.0) K/uL Lymph # (Auto) (0.90-2.90) K/uL [place] # (Auto) (0.00-0.90) K/UL Eos # (Auto) (0.00-0.50) K/uL Baso # (Auto) (0.00-0.30) K/uL Abs Immat Gran (auto) (0.00-0.30) K/uL Imm/Tot Granulo (auto) % Sodium (135-149) mmol/L Potassium (3.6-5.1) mmol/L Chloride (96-114) mmol/L Carbon Dioxide (20-32) mmol/L Anion Gap (7-15) mEq/L BUN (7-30) mg/dL Creatinine (0.5-1.5) mg/dL Estimated Creat Clear Estimated GFR ml/min Glucose (60-115) mg/dL Calcium (8.4-10.6) mg/dL Magnesium (1.5-2.6) mg/dL Total Bilirubin (0.1-1.5) mg/dL AST (12-35) U/L ALT (4-35) U/L Alkaline Phosphatase (40-150) U/L Total Creatine Kinase (41-117) U/L Troponin I (0.01-0.04) ng/mL Total Protein (6.0-8.3) g/dL Albumin (3.3-5.0) g/dL Urine Color (Yellow) Urine Appearance (Clear) Urine pH (5.0-8.5) Ur Specific [place] (1.000-1.030) Urine Protein (Negative) Urine Glucose (UA) (Negative) Urine Ketones (Negative) Urine Blood (Negative) Urine Nitrite (Negative) Urine Bilirubin (Negative) Urine Urobilinogen (0.2-1.0) Ur Leukocyte Esterase (Negative) Urine RBC (0-2) Urine WBC (0-5) Ur Squamous Epith Cells (None-Few) Urine Bacteria Ethyl Alcohol (0.01-0.03) % Lab Acknowledgement Test Added Imaging Data XR left hip: Attestation: I have reviewed the pertinent imaging results. My impression: I do not see any acute pathology or fracture on my preliminary review of her hip or pelvis. Radiologist's impression: Patient: ELIA DICKERSON Facility:?[facility] Patient ID:?[id number] Site Patient ID:?[id number]. Site :?1950 Study:?XRay-Hip Left W/PELVIS-12/06/2023 9:02:09 PM Ordering Physician:Viraj Crane Final Report: INDICATION: Pelvic hip pain, fall TECHNIQUE: Pelvis radiograph, Hip radiograph 3 views left COMPARISON: None FINDINGS: Bone: No acute fractures or aggressive bone lesions are identified. Joint: The hip joints are unremarkable. The visualized sacroiliac joints are unremarkable in appearance. The pubic symphysis is normal in appearance. Soft tissue: Bilateral tubal ligation clips are noted. The visualized bowel gas pattern of the pelvis is unremarkable in appearance. No radiopaque foreign bodies are seen. IMPRESSION: 1. No acute osseous injuries or abnormalities are noted. Dictated by: Mustapha Pina MD @ 12/06/2023 21:18:18 (Electronic Signature) Chest x-ray: Attestation: I have reviewed the pertinent imaging results. Radiologist's impression: Patient: ELIA DICKERSON Facility:?[facility] Patient ID:?[id number] Site Patient ID:?[id number]. Site :?1950 Study:?XRay-Ribs-12/06/2023 9:03:30 PM Ordering Physician:Viraj Crane Final Report: Indication: FALL, PAIN Technique: Frontal view of the chest and frontal and oblique views of the left ribs Comparison: None Findings/impression : Suspected nondisplaced fracture of the left lateral 9th rib. There is some cortical irregularity of the left anterolateral 8th rib, may be an acute, nondisplaced fracture. Likely sequela of remote, healed left anterolateral 7th rib fracture. Severe compression fracture deformity of the L2 vertebral body. The cardiomediastinal silhouette and pulmonary vasculature are unremarkable. There is no focal airspace consolidation, pleural effusion, or pneumothorax. Dictated by Jovan Mcneill MD @ 12/06/2023 9:54:35 PM (Electronic Signature) CT scan - head: Attestation: I have reviewed the pertinent imaging results. Radiologist's impression: Patient: ELIA DICKERSON Facility:?[facility] Patient ID:?[id number] Site Patient ID:?[id number]. Site :?1950 Study:?CT-Head W/O-12/06/2023 9:51:21 PM Ordering Physician:Viraj Crane Final Report: INDICATION: Headache. Trauma. TECHNIQUE: Non-contrast CT of the head is submitted. No comparisons. FINDINGS: The ventricles, sulci and gyri are of normal size, shape and contour. Midline structures are centrally located. No convincing evidence of intra- or extra-axial fluid collections. IMPRESSION: 1. No radiographic evidence of acute intracranial abnormalities. Please note that all CT scans at this facility use dose modulation, iterative reconstruction, and/or weight-based dosing when appropriate to reduce radiation dose to as low as reasonably achievable. Dictated by Juan Pagan MD @ 12/06/2023 10:09:35 PM (Electronic Signature) ECG Data Attestation: I personally reviewed and interpreted this ECG as follows: ( Sinus rhythm, 97 beats per minute. PVC seen. No acute ischemic change. QT corrected 482 milliseconds.) Prior ECG tracings: not available for review Discharge Plan Discharge Clinical Impression: Hypokalemia, Hyponatremia, Alcohol use, Hypomagnesemia Fall Qualifiers: Encounter type: initial encounter Qualified Code(s): W19.XXXA - Unspecified fall, initial encounter Multiple rib fractures Qualifiers: Encounter type: initial encounter Fracture type: closed Laterality: left Qualified Code(s): S22.42XA - Multiple fractures of ribs, left side, initial encounter for closed fracture Patient Disposition: Admitted As Observation Condition: Stable
[2023-12-06 20:33] VITALS: BP 175/99; PULSE 88; RESP 16; TEMP 36.6; O2SAT 96; BMI 23.2
--- NOTE | 2023-12-06 21:12 | CRLHL7_ITS ---
For Patients: As a result of the Century Cures Act, medical imaging exams and procedure reports are released immediately into your electronic medical record. You may view this report before your referring provider. If you have questions, please contact your health care provider. INDICATION: Headache. Trauma. TECHNIQUE: Non-contrast CT of the head is submitted. No comparisons. FINDINGS: The ventricles, sulci and gyri are of normal size, shape and contour. Midline structures are centrally located. No convincing evidence of intra- or extra-axial fluid collections. IMPRESSION: 1. No radiographic evidence of acute intracranial abnormalities. Please note that all CT scans at this facility use dose modulation, iterative reconstruction, and/or weight-based dosing when appropriate to reduce radiation dose to as low as reasonably achievable. Dictated by Juan Pagan MD @ 12/06/2023 10:09:35 PM (Electronically Signed)
[2023-12-06 21:30] LABS: Lactate* 3.6 mmol/L (0.5-1.9)
[2023-12-06 21:31] LABS: Basophils Percent Auto 0.2 % (0.0-3.0); Eosinophils Percent Auto 0.3 % (0.0-7.0); Hemoglobin* 10.3 gm/dL (12.0-16.0); Immature Granulocytes Pct Auto 0.6 %; Lymphocytes Percent Auto 6.9 % (20-44); Mean Corpuscular HGB Conc 37 gm/dL (32-36); Mean Corpuscular Hemoglobin 31 pg (26-34); Mean Corpuscular Volume 83 fL (80-100); Monocytes Percent Auto 4.6 % (0.0-11.0); Neutrophils Percent Auto 87.4 % (42.0-72.0); Platelet Count* 108 K/uL (140-440); RDW Coefficient of Variation % 12.9 % (11.5-15.5); Red Blood Count 3.36 m/uL (4.00-5.20); White Blood Count* 11.24 K/uL (4.50-11.00)
[2023-12-06 21:34] LABS: Slide Review Reflex No
[2023-12-06 21:42] LABS: Appearance Urine Clear (Clear); Bilirubin Urine Negative (Negative); Blood Urine Trace-intact (Negative); Color Urine Yellow (Yellow); Glucose Urine Negative (Negative); Ketones Urine Negative (Negative); Leukocyte Esterase Urine Negative (Negative); Nitrite Urine Negative (Negative); Protein Urine Negative (Negative); Specific Gravity Urine 1.015 (1.000-1.030); Urobilinogen Urine 0.2 (0.2-1.0)
[2023-12-06 21:51] VITALS: BP 164/82; PULSE 72; RESP 16; O2SAT 96
--- OUTSIDE RECORDS SUMMARY | 2023-12-06 22:01 | XMS_ITS | Clinical Summary ---
Author Organization [employer] [facility] Address [place], [place] [address] Care Team Providers Care Golf Club Head Inspector And Adjuster Name Role Phone Jodi Mabry DO Primary Care Provider [facility] [place] Unavailable Odette Hunter MD Unavailable Unava Jody Heredia RN, BSN Unavailable Allergies Active Allergy Reactions Criticality Noted Date Comments Clindamycin Rash Medium 03/22/2020 Penicillins Rash Medium 05/21/2015 Vancomycin Rash Medium 05/28/2020 Medications Medication Sig Dispensed Refills Start Date End Date Status cetirizine (ZYRTEC) 10 mg tabletIndications:s easonal allergic rhinitis Take 1 tablet by mouth once daily. 0 06/01/2020 Active cholecalciferol (VITAMIN D3) 1,000 unit tabletIndications:v itamin D deficiency Take 1 tablet by mouth once daily. 30 tablet 06/02/2020 Active multivitamin,ther and minerals (MULTIVITAMIN WITH MINERALS) tabletIndications:v itamin deficiency Take 1 tablet by mouth once daily. 30 tablet 06/02/2020 Active loperamide (IMODIUM) 2 mg capsuleIndications: diarrhea Take 2 capsules (4mg) by mouth with 1st loose stool, then 1 capsule (2mg) with each subsequent loose stool. Max 16 mg in 24 hrs 30 capsule 06/02/2020 Active tiZANidine (ZANAFLEX) 2 mg tabletIndications:M uscle spasm of both lower legs Take 1 Tablet (2 mg) by mouth every 8 hours if needed for Muscle Spasm. 60 Tablet 3 01/12/2023 Active sertraline (ZOLOFT) 100 mg tabletIndications:a nxiety with depression Take 1 Tablet (100 mg) by mouth once daily. 90 Tablet 3 01/12/2023 Active famotidine (PEPCID) 10 mg tabletIndications:h eartburn prevention Take 10 mg by mouth once daily if needed for GI Upset or Heartburn. Active gabapentin (NEURONTIN) 300 mg capsuleIndications: neuropathic pain Take 1 Capsule (300 mg) by mouth at bedtime. 90 Capsule 03/09/2023 Active ibuprofen (ADVIL; MOTRIN) 200 mg tabletIndications:p ain Take 400 mg by mouth every 6 hours if needed for Headache or Pain. Active LORazepam (ATIVAN) 0.5 mg tabIndications:Anxi ety Take 1 Tablet (0.5 mg) by mouth every 6 hours if needed for Anxiety. 30 Tablet 3 07/03/2023 Active lidocaine 5 % topical patch APPLY 1 PATCH AND LEAVE ON MOST PAINFUL AREA FOR UP TO 12 HOURS 03/05/2023 Active triamcinolone 0.1% (KENALOG IN ORABASE) 0.1 % paste Triamcinolone Dental Paste 0.1 % active Active acetaminophen (TYLENOL ORAL) Take 1,000 mg by mouth every 6 hours if needed (pain). Active oxyCODONE (ROXICODONE) 5 mg immediate release tabletIndications:D iaphragmatic hernia without obstruction and without gangrene Take 1-2 Tablets (5-10 mg) by mouth every 4 hours if needed for Pain (For moderate pain). 15 Tablet 07/20/2023 Active sennosides-docusate (SENOKOT S) (8.6-50 mg) tabletIndications:D iaphragmatic hernia without obstruction and without gangrene Take 1 Tablet by mouth 2 times daily if needed for Constipation. 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 NOTHING TO EAT OT DRINK FOR 30 MINUTES AFTER USE 1800 mL 2 07/26/2023 Active krlkoz-mqmmisbx-yub lase (Zenpep) 10,000-32,000 -42,000 unit cpDRIndications:Matson creatic insufficiency Take 1 Capsule by mouth three times daily with meals. 180 Capsule 4 08/01/2023 Active vsozcg-smlbbwnc-wtd lase (Creon) 12,000-38,000 -60,000 unit cpDR delayed-release capsuleIndications: exocrine pancreatic insufficiency Take 1 Capsule by mouth three times daily with meals. 100 Capsule 5 10/09/2023 Active Active Problems Problem Noted Date Diagnosed Date Diaphragmatic hernia without obstruction and without gangrene 07/19/2023 S/p Left Tibia shaft intrame dullary nail 03/17/23 Tyson Poole MD 03/26/2023 Displaced comminuted fractur e of shaft of left tibia, initial encounter for closed fracture 03/17/2023 Depression, recurrent 07/19/2022 Stage 3a chronic kidney disease 05/01/2021 Last Assessment & Plan: chart update only. 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 Work up done outside [facility] euthyroidism 04/20/2018 Hypovitaminosis D 04/20/2018 Alcohol dependence 04/19/2018 Last Assessment & Plan: chart update only. Compression fracture of L2 04/19/2018 Pemphigus vulgaris of gingival mucosa 01/03/2017 Recurrent cold sores 05/26/2016 Anxiety 05/19/2016 HTN (hypertension) Hyperlipidemia Resolved Problems Problem Noted Date Diagnosed Date Resolved Date Osteomyelitis, unspecified s ite, unspecified type 05/01/2021 07/19/2022 Hyponatremia 08/18/2017 04/19/2018 Hypokalemia 08/18/2017 04/19/2018 Chronic recurrent pancreatitis 05/19/2016 12/08/2021 Encounters Date Type Department Care Team Description 10/05/2023 Refill [facility] [address] [place], [place] [id number] Jodi Mabry DO Refill Request (Creon) from Last 3 Months Immunizations Name Administration Dates Next Due Tdap 12/24/2015 Family History Medical History Relation Name Comments Premature ovarian failure Daughter 1 Premature ovarian failure Daughter 2 Cancer Father throat cancer Other Father dementia Unknown Father Relation Name Status Comments Daughter 1 Daughter 2 Father Mother in a fire Social History Tobacco Use Types Packs/Day Years Used Date Smoking Tobacco: Never Smokeless Tobacco: Never Tobacco Cessation:Counseling Given: Not Answered Alcohol Use Standard Drinks/Week Comments Yes 0 (1 standard drink = 0.6 oz pur e alcohol) socail PHQ-2 Answer Date Recorded PHQ-2 TOTAL SCORE 2 01/12/2023 Social Connections Answer Date Recorded Frequency of Communication with Friends and Fami ly Not on file 07/18/2023 Financial Resource Strain Answer Date R ecorded Difficulty of Paying Living Expenses 3 07/17/2022 Difficulty of Paying Living Expenses Not on file 07/17/2022 Food Insecurity Answer Date Recorded Worried About Running Out of Food in the Last Ye ar 1 07/17/2022 Transportation Needs Answer Date Record ed Lack of Transportation (Medical) 1 07/17/2022 Housing Stability Answer Date Recorded Unable to Pay for Housing in the Last Year 1 07/17/2022 Sex and Gender Information Value Date Recorded Sex Assigned at Not on file Gender Identity Not on file Sexual Orientation Not on file Obstetrics History Para Term AB IAB SAB Ectopic Multiple Livin g Live Births 3 3 Date Outcome GA Total Labor Labor/2nd/3rd Weight Sex Type Anes PTL Katia A1 A5 Name Clin Para Para Para Last Filed Vital Signs Vital Sign Reading Time Taken Comments Blood Pressure 150/66 08/02/2023 10:52 AM RASPBERRY CHECKER Pulse 77 08/02/2023 10:52 AM RASPBERRY CHECKER Temperature 36.6 ??C (97.8 ??F) 07/20/2023 8:10 AM CS T Respiratory Rate 18 07/20/2023 8:10 AM RASPBERRY CHECKER Oxygen Saturation 90% 07/20/2023 8:10 AM RASPBERRY CHECKER Inhaled Oxygen Concentration - - Weight 54.1 kg (119 lb 4.3 oz) 07/19/2023 6:11 A M RASPBERRY CHECKER Height 149.9 cm (4' 11) 08/02/2023 10:52 AM RASPBERRY CHECKER Body Mass Index 24.09 07/19/2023 6:11 AM RASPBERRY CHECKER Plan of Treatment Health Maintenance Due Date Last Done Comments Pneumococcal series for age 65+ (1 of 2 - PCV) 1956 Zoster (shingles) series for age 50+ (1 of 2) 2002 Mammogram for age 45-75 05/26/2016 05/26/2015 DEXA/DXA scan for age 65+ 2017 Fecal testing non-DNA (FIT,FOBT,iFOBT) for age 45-75 09/18/2022 09/18/2021 COVID-19 vaccine series ( season) 2023 02/24/2021, 02/02/2021 Medicare Wellness for age 65+ 01/13/2024 01/12/2023 Depression screening for age 12+ 01/16/2024 01/15/2023, 01/12/2023, 07/18/2022, Additional history exists Influenza for age 65+ 02/24/2024 BMI (ht and wt on same day) for age 18+ 06/29/2024 06/29/2023, 05/15/2023, 01/12/2023, Additional history exists Tetanus booster 12/23/2025 12/24/2015 Lipids for age 45-75 01/13/2028 01/12/2023, 03/02/2021, 02/02/2020, Additional history exists Tdap Completed 12/24/2015 Hepatitis C screening for ag e 18-79 Completed 02/02/2020, 09/18/2016 Medical Devices Implanted Type Area Senior Software Systems Engineer Device Identifier Shelf Expiration Date Model / Serial / Lot Rotary Driller Helper 3.0mm Implanted:Qty: 1 on 04/14/2020 by Odette Hunter MD at [facility] Left: Neck [employer] 01/23/2024 [id number] / [id number] / [id number] Rotary Driller Helper 3.5mm Implanted:Qty: 1 on 04/20/2020 by Odette Hunter MD at [facility] Left: See Notes 04/07/2023 [id number] / / [id number] Description:Face 2.0 Titanium Matrixmandible Locking Screws, Self-Tapping Implanted:Qty: 5 on 04/20/2020 by Odette Hunter MD at [facility] Left: See Notes [employer] 04.503.608. 01 / / N/A Description:Face 2.0 Titanium Matrixmandible Locking Screws, Self-Tapping Implanted:Qty: 5 on 04/20/2020 by Odette Hunter MD at [facility] Left: See Notes [employer] [id number]. 01 / / N/A Description:face 2.0 Titanium Matrixmandible Locking Screws, Self-Tapping Implanted:Qty: 1 on 04/20/2020 by Odette Hunter MD at [facility] Left: See Notes [employer] [id number]. 01 / / N/A Description:face 2.4mm Titanium Matrixmandible Locking Screws, Self Tapping Implanted:Qty: 1 on 04/20/2020 by Odette Hunter MD at [facility] Left: See Notes [employer] [id number]. 01 / / N/A Description:face 2.4mm Titanium Matrixmandible Locking Screws Implanted:Qty: 1 on 04/20/2020 by Odette Hunter MD at [facility] Left: See Notes [employer] [id number]. 01 / / N/A Description:face Titanium Matrix Mandible Angle Reconstruction Plates Implanted:Qty: 1 on 04/20/2020 by Odette Hunter MD at [facility] Left: Mandible [employer] 04.503.732 / / Rotary Driller Helper 3.0mm Implanted:Qty: 1 on 04/20/2020 by Odette Hunter MD at [facility] Left: See Notes [facility] 09/01/2024 [id number] / / [id number] Description:Cheek Trigen [place]-Nail Tibial Nail [id number] 10mm X 28cm Implanted:Qty: 1 on 03/17/2023 by Tyson Poole MD at [facility] Left: Tibia [employer] 03/30/2032 [id number] / / [id number] Screw Bone 5x25mm Trigen Low Profile - [id number] Implanted:Qty: 1 on 03/17/2023 by Tyson Poole MD at [facility] Left: Tibia [employer] 11/30/2032 [id number] / / [id number] Screw Bone 5.0x27.5mm Trigen Nasim Low Profile Titnm - [id number] Implanted:Qty: 1 on 03/17/2023 by Tyson Poole MD at [facility] Left: Tibia [employer] 11/30/2032 [id number] / / [id number] Screw Bone 5.0x32.5mm Trigen Low Profile - [id number] Implanted:Qty: 1 on 03/17/2023 by Tyson Poole MD at [facility] Left: Tibia [employer] 11/30/2032 [id number] / / [id number] Screw Bone 5.0x42.5mm Trigen Nasim Low Profile Titnm - [id number] Implanted:Qty: 1 on 03/17/2023 by Tyson Poole MD at [facility] Left: Tibia [employer] 08/04/2032 [id number] / / [id number] Mesh Ventral 15cm Ventralight St W/Echo2 - [id number] Implanted:Qty: 1 on 07/19/2023 by Torres Glover MD at [facility] N/A: Abdomen [employer] 11/20/2023 [id number] / / [id number] Explanted Type Area Senior Software Systems Engineer Device Identifier Shelf Expiration Date Model / Serial / Lot Patient Specific 2.0 Plate Implanted:Qty: 1 on 04/14/2020 by Odette Hunter MD at [facility] Explanted:Qty: 1 on 04/20/2020 at [facility] Left: Mandible [employer] [id number] / / 2.0 Titanium Matrixmandible Locking Screws, Self-Tapping Explanted:Qty: 2 on 04/20/2020 at [facility] Left: See Notes [employer] 04.503.61 0.01 / / N/A Description:face M04.503.606.01 - [id number] Implanted:Qty: 3 on 04/14/2020 by Odette Hunter MD at [facility] Explanted:Qty: 3 on 04/20/2020 by Phill Bermudez MD at [facility] Left: Mandible Dep[employer]ynthes Solvesting .60 6.01 / / [id number] - [id number] Implanted:Qty: 3 on 04/14/2020 by Phill Bermudez MD at [facility] Explanted:Qty: 3 on 04/20/2020 by Phill Bermudez MD at [facility] Left: Mandible [employer]uy [employer] Sol[employer]ing 60 8.01 / / Description:Titanium MatrixM ANDIBLE locking screws, self-tapping M04.503.638.01 - [id number] Implanted:Qty: 2 on 04/14/2020 by Phill Bermudez MD at [facility] Explanted:Qty: 2 on 04/20/2020 at [facility] Left: Mandible [employer] .63 8.01 / / Description:2.4 mm titanium MatrixMandible Locking screws, self tapping M03.503.408 - [id number] Implanted:Qty: 1 on 04/14/2020 by Phill Bermudez MD at [facility] Explanted:Qty: 1 on 04/20/2020 at [facility] Left: Mandible Depuy [employer] .40 8 / / Description:j-latch with 8mm stop, 50 mm M03.503.477 - [id number] Implanted:Qty: 1 on 04/14/2020 by Phill Bermudez MD at [facility] Explanted:Qty: 1 on 04/20/2020 at [facility] Left: Mandible Depuy [employer] Sol[employer] .47 7 / / Description:Daniel Casas tch, 125 mm Procedures Procedure Name Priority Date/Time Associated Diagnosis Comments LIPID PANEL W REFLEX MEASURED LDL Routine 01/12/2023 3:59 PM CDT Hyperlipidemia, unspecified hyperlipidemia type OCCULT BLOOD IFOBT STOOL Routine 09/18/2021 4:02 PM CDT Screening for colorectal cancer ACUTE HEPATITIS PANEL Routine 02/02/2020 2:24 PM CDT Psoriasis XR MAMMO BILAT SCREEN FFDM (IA) Routine 05/26/2015 3:44 PM RASPBERRY CHECKER Visit for screening mammogram from Last 3 Months or Most Recently Relevant to Health Maintenance Results * (ABNORMAL) LIPID PANEL W REFLEX MEASURED LDL (01/12/2023 3:59 PM CDT) CHOLESTEROL,TOTAL 204(H) 100 - 199 mg/dL 01/15/2023 4:01 PM CDT [facility] Comment: Cholesterol, Total Reference Ranges Desirable <200 mg/dL Borderline 200-239 mg/dL High >=240 mg/dL TRIGLYCERIDES 145 <150 mg/dL 01/15/2023 4:01 PM CDT [facility] HDL CHOLESTEROL 68 >40 mg/dL 4:01 PM CDT [facility] NON-HDL CHOLESTEROL 136 <145 mg/dl 01/15/2023 4:01 PM CDT [facility] CHOL/HDL RATIO 3.00 <4.50 01/15/2023 4:01 PM CDT [facility] LDL CHOLESTEROL 107 <=130 mg/dL 01/15/2023 4:01 PM CDT [facility] VLDL CHOLESTEROL 29 <=30 mg/dL 01/15/2023 4:01 PM CDT [facility] PROVIDER ORDERED STATUS RANDOM 01/15/2023 4:01 PM CDT [facility] Blood BLOOD SPECIMEN / Unknown Venipuncture / Unknown 01/12/2023 3:59 PM CDT 01/12/2023 3:59 PM CDT Jodi Mabry DO CHEMISTRY [facility] [address] [place] [address], * OCCULT BLOOD IFOBT STOOL (09/18/2021 4:02 PM CDT) STOOL BLOOD ,IFOBT Negative Negative 09/23/2021 10:17 AM CDT [facility] Stool STOOL SPECIMEN / Unknown Non-Blood / Unknown 09/18/2021 4:02 PM CDT 09/21/2021 4:03 PM CDT Jodi Mabry DO LABORATORY Performing Organization Address City/[facility] Co de Phone Number [facility] [address] [facility] [place] [place] [address], [place] [phone] * ACUTE HEPATITIS PANEL (02/02/2020 2:24 PM CDT) HEPATITIS C ANTIBODY Non-Reactive Non-Reactive 02/02/2020 9:36 PM CDT [facility] Comment:Antibodies to HCV no t detected; does not exclude the possibility of exposure to HCV. IGM ANTI HAV Non-Reactive Non-Reactive 02/02/20 20 9:36 PM CDT [facility] HBSAG Nonreactive Nonreactive 02/02/2020 9:36 PM CDT [facility] IGM ANTI HBC Non-Reactive Non-Reactive 02/02/20 9:36 PM CDT [facility] Blood BLOOD SPECIMEN / Unknown Venipuncture / Unknown 02/02/2020 2:24 PM CDT 02/02/2020 2:25 PM CDT Narrative [facility] - 02/02/2020 9:36 PM CDT Anti-HBc IgM not detected. Does not exclude the possibility of exposure to or infection with HBV. Jodi Mabry DO SEND OUTS Performing Organization Address City/[facility] Co de Phone Number [facility] [address] [place] [address], [place] * XR MAMMO BILAT SCREEN FFDM (05/26/2015 3:44 PM RASPBERRY CHECKER) Anatomical Region Laterality Modality BREASTS, Breast Left, Breast Right Bilateral Mammography Impressions 05/27/2015 3:47 PM RASPBERRY CHECKER ??There is no radiographic evidence for malignancy. ??Recommend annual mammograms. A lay language report of this examination will be provided to the patient. MAMMOGRAM ASSESSMENT: ??ACR 1 Negative Narrative 05/27/2015 3:47 PM RASPBERRY CHECKER XR MAMMO BILAT SCREEN FFDM [G0202.0] CLINICAL HISTORY: ??This is an asymptomatic 64 y.o. patient. INDICATION FOR EXAM: Mammogram Screening. TECHNIQUE: CC & MLO views were obtained. ??This digital study was evaluated with the assistance of Computer-Aided Detection. COMPARISON FILM: This is a baseline study. FINDINGS: ??Mammographically, the breast tissue has scattered fibroglandular densities. ??There are no dominant masses, suspicious micro calcifications or areas of architectural distortion. Jodi Mabry DO MAMMO from Last 3 Months or Most Recently Relevant to Health Maintenance Advance Directives Documents on File Type Date Recorded Patient Sueding And Buffing Machine Operator Expl anation Healthcare Directive 04/14/2020 5:49 AM Power of Pipe Finishing Supervisor 04/14/2020 5:46 AM * Full Code (Latest Code Status on File) Date Activated Date Inactivated Comments 07/19/2023 5:41 AM 07/20/2023 2:44 PM Question Answer Comments Code Status Discussion: Reviewed Preferences * Full Code Date Activated Date Inactivated Comments 03/17/2023 3:25 PM 03/20/2023 2:45 PM Question Answer Comments Code Status Discussion: Reviewed Preferences * Full Code Date Activated Date Inactivated Comments 05/08/2020 12:49 PM 06/02/2020 1:16 PM Question Answer Comments Code Status Discussion: Per Existing Order * Full Code Date Activated Date Inactivated Comments 04/16/2020 9:48 AM 05/08/2020 12:48 PM Question Answer Comments Code Status Discussion: Not Discussed * Full Code Date Activated Date Inactivated Comments 04/14/2020 5:44 AM 04/16/2020 9:48 AM Question Answer Comments Code Status Discussion: Not Discussed Care Teams [employer] Head Inspector And Adjuster Relationship Specialty Start Date End Date Jodi Mabry DO [address] [place] [address] PCP - General Family Practice 06/29/23 [facility] [address] [address] 04/22/18 [place] [address] [place] [id number] Surgery - Otolaryngology 04/08/20 Jody Juares, RN, BSN [address] [address] Cancer Rehab Care Coordination - [facility] Registered Nurse 06/15/20
[2023-12-06 22:10] LABS: Albumin* 5.3 g/dL (3.3-5.0); Chloride* 83 mmol/L (96-114)
[2023-12-06 22:13] LABS: Alanine Aminotransferase* 23 U/L (4-35); Alkaline Phosphatase* 105 U/L (40-150); Anion Gap 19 mEq/L (7-15); Aspartate Amino Transferase* 57 U/L (12-35); Bilirubin Total* 0.8 mg/dL (0.1-1.5); Blood Urea Nitrogen* 10 mg/dL (7-30); Carbon Dioxide* 15 mmol/L (20-32); Creatine Kinase* 750 U/L (41-117); Creatinine* 0.7 mg/dL (0.5-1.5); Est. Creatinine Clearance* 42.49; Estimated Glomerular Filt Rate 92 ml/min; Glucose* 91 mg/dL (60-115)
[2023-12-06 22:14] LABS: Calcium* 8.6 mg/dL (8.4-10.6)
[2023-12-06 22:31] LABS: Sodium* 117 mmol/L (135-149); Troponin I* < 0.01 ng/mL (0.01-0.04)
[2023-12-06 22:41] LABS: RBC Urine 0-2 (0-2); WBC Urine 0-2 (0-5)
[2023-12-06 22:51] LABS: Magnesium* 1.4 mg/dL (1.5-2.6)
[2023-12-06 22:52] LABS: Ethanol* 0.07 % (0.01-0.03)
[2023-12-06] MEDS: POTASSIUM BICARB 25 MEQ EFFERVESCENT TAB PO (23:05)
[2023-12-06] MEDS: 0.9 % SODIUM CHLORIDE 500 ML 500 ML IV (23:05)
--- NOTE | 2023-12-06 23:18 | CRLHL7_ITS ---
For Patients: As a result of the Cures Act, medical imaging exams and procedure reports are released immediately into your electronic medical record. You may view this report before your referring provider. If you have questions, please contact your health care provider. INDICATION: Fall, hip pain, pain TECHNIQUE: Femur radiograph 2 views on 4 films left COMPARISON: None FINDINGS: Bone: No acute fractures or aggressive bone lesions are identified. Joint: The hip and visualized knee joints are unremarkable in appearance. No significant joint effusion is seen. Soft tissue: Unremarkable. No radiopaque foreign bodies are seen. IMPRESSION: 1. No acute osseous injuries or abnormalities are noted. Dictated by: Mustapha Pina MD @ 12/07/2023 00:06:00 (Electronically Signed)
[2023-12-06 23:24] VITALS: BP 153/88; PULSE 72; RESP 16; TEMP 36.6; O2SAT 96
[2023-12-06] MEDS: MAGNESIUM IV 2 GM/50 ML PIGGYBACK IVPB (23:37)
[2023-12-07] VITALS (11 sets, daily range): BP systolic 91–176; BP diastolic 42–88; PULSE 66–75; RESP 14–16; TEMP 36.4–36.6; O2SAT 96–100; BMI 23.7
--- NOTE | 2023-12-07 00:09 | PM.IMHP1 ---
Hospitalist- H&P: LC History of Present Illness Time Seen by Provider: 22:30 Date Seen: 12/06/23 Chief complaint: Fall Narrative: Luna Valero is a 73 year old female admitted through the emergency department after a fall at home. She lives at [facility]. Between 2 and 3 p.m. this afternoon she fell at home and was unable to get up. She reports the cause of the fall was that her left leg gave out. She reports recently she has been having pain in her mid left posterior thigh. Once she was on the floor she was unable to get up under her own power. Eventually she was able to crawl into the bathroom and pull the cord to have staff check on her. Other than her left hip and thigh hurting she reports that she also has left lower rib pain and a bruise in that area as well. She reports she had a fall of in the last week without any obvious injury. Patient has a longstanding history of alcoholism according to her daughters. She denies any problems with alcohol. She told the emergency department doctor that she had no alcohol today. She told me that she had 2 beers this afternoon. Her alcohol level in the emergency department was 0.07. She has had recurrent problems with hyponatremia. Sodium in the emergency department was 117. She has had recurrent problems with hypokalemia. Potassium in the emergency department was 3.0. She has had recurrent problems with hypo magnesemia. Magnesium level in the emergency department was 1.4. She has had chronic thrombocytopenia. Platelet count was 108. 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 She has had surgery and radiation for this. She has pancreatic insufficiency related to alcohol abuse and is on pancreatic enzymes. She reports no previous problems with alcohol withdrawal in the past hospitalizations. She was briefly hospitalized for laparoscopic diaphragmatic hernia repair earlier this year without complications. Last February she was hospitalized for a fracture of her left tibia. Review of Systems Narrative: Other than the events above she reports generally feeling well. She has not had a fever, cold, cough, chest pain other than her left rib injury from today. She is not having abdominal pain. She has been able to eat and drink. She reports occasional diarrhea but generally bowels work fairly normally. No blood in her stool. No urinary problems. She is able to eat a normal diet despite her history of squamous cell carcinoma of her mandible and previous surgeries and radiation. She is able to chew food on the right side of her mouth. [facility] Medical History (Updated 12/07/23 @ 00:32 by Alexandre Srivastava MD) Squamous cell carcinoma of mandible ?C41.1 - Malignant neoplasm of mandible (ICD-10) Pancreatic insufficiency ?K86.89 - Other specified diseases of pancreas (ICD-10) Alcoholism ?F10.20 - Alcohol dependence, uncomplicated (ICD-10) Family History (Updated 12/07/23 @ 00:23 by Alexandre Srivastava MD) Mother Alcohol dependence Father Alcohol dependence Social History (Updated 12/07/23 @ 00:24 by Alexandre Srivastava MD) Narrative: She lives at the [facility]. She lives alone. She is here with her 2 daughters. Daughter Sherrie is healthcare power of [employer]. Code status is DNR. She does not smoke. She reports minimal alcohol consumption but her daughters indicate her drinking is a significant ongoing problem What is your current living situation?: I presently have a place to live Problems where you live: no known problems Problems where you live details: none In the past 12 months, utilities in danger of being shut off: no In past 12 months, lack of transportation kept you from medical appts, meetings, work, or getting things needed for daily living: no In the past 12 mos, have been you worried that your food would run out before you had money to buy more?: never true In the past 12 mos, the food you bought just didn't last and you didn't have money to buy more?: never true Smoking Status: Never smoker Do you use any of these nicotine containing products: None How often do you have a drink containing alcohol: never How many standard drinks containing alcohol do you have on a typical day: 1 or 2 How often do you have six or more drinks on one occasion: Never AUDIT-C Alcohol total score: 0 Non-prescribed substance use: denies use Caffeine: Yes (coffee) How often does anyone, including family, friends and others, physically hurt you: never How often does anyone, including family, friends and others, insult or talk down to you: never How often does anyone, including family, friends and others, threaten you with harm: never How often does anyone, including family, friends and others, scream or curse at you: never service: No Meds Home Medications and Allergies Home Medications ?Medication ?Instructions ?Recorded ?Confirmed ?Type lorazepam 0.5 mg tablet 0.5 mg PO Q6H PRN 02/26/23 12/06/23 History sertraline 100 mg tablet 100 mg PO DAILY 02/26/23 12/06/23 History lmpilw-ehtpwfvy-[id number] 1 cap PO BID 03/05/23 12/06/23 History 12,000-38,000-60,000 unit capsule,delayed rel (Creon) tizanidine 2 mg tablet 2 mg PO 3XD 03/05/23 12/06/23 History acetaminophen 500 mg tablet 500 mg PO Q4H PRN 12/06/23 12/06/23 History cetirizine 10 mg tablet 10 mg PO DAILY allergies 12/06/23 12/06/23 History chlorhexidine gluconate 0.12 % 5 ml PO QID 12/06/23 12/06/23 History mouthwash cholecalciferol (vitamin D3) 25 25 mcg PO DAILY 12/06/23 12/06/23 History mcg (1,000 unit) tablet famotidine 10 mg tablet (Acid 10 mg PO DAILY PRN heartburn 12/06/23 12/06/23 History Staff Development Coordinator Rn (famotidine)) gabapentin 300 mg capsule 300 mg PO QPM neuropathic pain 12/06/23 12/06/23 History multivitamin-ferrous 1 tab PO DAILY 12/06/23 12/06/23 History fumarate-folic acid 18 mg-400 mcg tablet (Certavite-Antioxidant) Allergies Allergy/AdvReac Type Severity Reaction Status Date / Time Penicillins Allergy Intermediate Verified 03/05/23 12:38 Exam Narrative: Exam Narrative: She is alert and appears in no distress. Speech is normal. She is oriented to her circumstances. Eyes normal. Oropharynx notable for changes from her left mandibulectomy with loss of teeth and deformity of her jaw which is chronic. Changes to her neck skin consistent with radiation therapy chronic affect. Respirations are clear to auscultation without wheezing rales or rhonchi. Cardiovascular: S1, S2, regular rate and rhythm. No murmur gallop or rub. She has bruising over her left chest wall at about the level of the 9th rib. Abdomen: Bowel sounds are present. Abdomen is soft without tenderness or mass. She is still healing the laparoscopic sites from her diaphragmatic hernia repair done a couple months ago. Extremities without edema. Range of motion in her left hip is normal without discomfort. Palpation over her left hip buttock, greater trochanter and anteriorly without tenderness. Palpation over the thigh is without significant tenderness. The knee has an abrasion in the prepatellar space and over the tibial tubercle consistent with crawling on the floor today. Range of motion the knee is normal without significant discomfort. Foot and ankle without evidence of swelling or trauma. Strength testing of both lower extremities shows 5/5 strength in hip flexion and extension, knee flexion and extension, ankle dorsiflexion and plantar flexion. No edema. Abrasions to both knees notable. Const: Vital Signs, click to edit/add: Vital Signs - 24 hr 12/06/23 20:33 12/06/23 21:51 12/06/23 23:24 Temperature 97.9 F 97.9 F Pulse Rate [Pulse Oximeter] 88 72 72 Respiratory Rate 16 16 16 Blood Pressure [Ri ght Upper Arm] 175/99 H 164/82 H 153/88 H Pulse Oximetry 96 96 96 Oxygen Delivery Me thod Room Air Room Air Room Air Documenting provider has reviewed patient's vital signs: yes Hospitalist - H&P: Result Labs Labs: Short CBC 12/06/23 Range/Units 21:25 WBC 11.24 H (4.50-11.00) K/uL Hgb 10.3 L (12.0-16.0) gm/dL Hct 28.0 L (33.0-51.0) % Plt Count 108 L (140-440) K/uL BMP 12/06/23 21:25 Sodium 117 L* Potassium 3.0 L Chloride 83 L Carbon Dioxide 15 L BUN 10 Creatinine 0.7 Glucose 91 Calcium 8.6 Cardiac Enzymes 12/06/23 Range/Units 21:25 Total Creatine Kinase 750 H (41-117) U/L Troponin I < 0.01 L (0.01-0.04) ng/mL Liver Function 12/06/23 Range/Units 21:25 Total Bilirubin 0.8 (0.1-1.5) mg/dL AST 57 H (12-35) U/L ALT 23 (4-35) U/L Alkaline Phosphatase 105 (40-150) U/L Albumin 5.3 H (3.3-5.0) g/dL Urine 12/05/ Range/Units 21:13 Urine Color Yellow (Yellow) Urine Appearance Clear (Clear) Urine pH 7.0 (5.0-8.5) Ur Specific [place] 1.015 (1.000-1.030) Urine Protein Negative (Negative) Urine Glucose (UA) Negative (Negative) Imaging Chest x-ray: Radiologist's impression: Indication: FALL, PAIN Technique: Frontal view of the chest and frontal and oblique views of the left ribs Comparison: None Findings/impression : Suspected nondisplaced fracture of the left lateral 9th rib. There is some cortical irregularity of the left anterolateral 8th rib, may be an acute, nondisplaced fracture. Likely sequela of remote, healed left anterolateral 7th rib fracture. Severe compression fracture deformity of the L2 vertebral body. The cardiomediastinal silhouette and pulmonary vasculature are unremarkable. There is no focal airspace consolidation, pleural effusion, or pneumothorax. CT scan - head: Radiologist's impression: INDICATION: Headache. Trauma. TECHNIQUE: Non-contrast CT of the head is submitted. No comparisons. FINDINGS: The ventricles, sulci and gyri are of normal size, shape and contour. Midline structures are centrally located. No convincing evidence of intra- or extra-axial fluid collections. IMPRESSION: 1. No radiographic evidence of acute intracranial abnormalities. Hip x-ray: Radiologist's impression: INDICATION: Pelvic hip pain, fall TECHNIQUE: Pelvis radiograph, Hip radiograph 3 views left COMPARISON: None FINDINGS: Bone: No acute fractures or aggressive bone lesions are identified. Joint: The hip joints are unremarkable. The visualized sacroiliac joints are unremarkable in appearance. The pubic symphysis is normal in appearance. Soft tissue: Bilateral tubal ligation clips are noted. The visualized bowel gas pattern of the pelvis is unremarkable in appearance. No radiopaque foreign bodies are seen. IMPRESSION: 1. No acute osseous injuries or abnormalities are noted. Assessment and Plan Assessment and plan (1) Hyponatremia: Problem comment: 117 on admission. Recurrent problem likely related to alcohol abuse Status: Acute (2) Fall: Status: Acute (3) Alcoholism: Problem comment: Recommend abstinence. [facility] protocol. Patient is adamant that this is not a problem for her Status: Acute (4) Hypomagnesemia: Problem comment: Recurrent problem likely related to alcohol abuse Status: Acute (5) Hypokalemia: Problem comment: Recurrent problem likely related to alcohol abuse Status: Acute (6) Multiple rib fractures: Problem comment: Probable fractures of left lateral 8th and 9th ribs Status: Acute (7) Rhabdomyolysis: Problem comment: Mild, due to prolonged lying on the floor after fall Status: Acute (8) Weakness: Problem comment: Unable to get up after fall. No obvious weakness on physical examination today. Therapy to evaluate. Status: Acute Plan Patient is admitted to the hospital for management of hyponatremia and other electrolyte problems, management of rib fracture and pain, monitoring and management of alcohol withdrawal, assessment of functional capabilities. Total Time Spent Total Time Spent: Total time spent is 85 minutes, 50 minutes in coordination of care and discussing with patient her daughters and other providers ongoing management of medical problems including falls, hyponatremia, alcohol use disorder
[2023-12-07] MEDS: LORazepam 0.5 MG TABLET PO (00:32)
[2023-12-07] MEDS: POTASSIUM BICARB 25 MEQ EFFERVESCENT TAB PO ×2 (00:32→15:17)
[2023-12-07] MEDS: THIAMINE 100 MG TABLET PO (00:51)
[2023-12-07] MEDS: ACETAMINOPHEN 500 MG TABLET PO ×4 (00:58→20:47)
[2023-12-07] MEDS: 5 % DEXTROSE/0.9% SOD CHLORIDE 1,000 ML 75 ML IV (00:59)
[2023-12-07 04:21] LABS: Sodium* 118 mmol/L (135-149)
[2023-12-07] MEDS: LORazepam 1 MG TABLET PO (04:33)
--- NOTE | 2023-12-07 05:09 | PC.NURSE ---
Pt restless during night, c/o left hip and rib pain as well as chronic back pain, CIWA's completed and ativan administered per protocol. upon admission, abrasion noted to bilateral knees due to fall at home, open to air, bruise approx 4 inches long to L side rib cage also present. pt denies SOB or difficulty breathing. tolerating po intake.
[2023-12-07] MEDS: 0.9 % SODIUM CHLORIDE 250 ml 250 ML IV (08:22)
[2023-12-07] MEDS: LIDOCAINE 5% PATCH 1 PATCH TRANSDERMA (08:23)
[2023-12-07] MEDS: CETIRIZINE HCL 10 MG TABLET PO (08:24)
[2023-12-07] MEDS: SERTRALINE 100 MG TABLET PO (08:24)
[2023-12-07] MEDS: OXYCODONE 5 MG TABLET PO ×3 (08:24→20:47)
[2023-12-07] MEDS: MAGNESIUM OXIDE 400 MG TABLET PO ×2 (08:24→11:08)
[2023-12-07] MEDS: FOLIC ACID 1 MG TABLET PO (08:25)
[2023-12-07] MEDS: MULTIVITAMIN/MINERALS 1 TABLET 1 TAB PO (08:25)
[2023-12-07] MEDS: PANCREALIPASE (12,38,60) CAP 1 CAP PO ×2 (08:29→20:47)
[2023-12-07] MEDS: ROPINIROLE HCL 0.25 MG TABLET PO (08:29)
[2023-12-07 09:51] LABS: Lactate* 1.8 mmol/L (0.5-1.9)
[2023-12-07 10:07] LABS: INR 0.99 (0.91-1.10); Prothrombin Time 13.7 Seconds
[2023-12-07 10:14] LABS: Chloride* 84 mmol/L (96-114); Potassium* 3.1 mmol/L (3.6-5.1)
--- NOTE | 2023-12-07 10:14 | P.IMPN_ITS ---
Progress Note: A&P Assessment and plan (1) Hyponatremia: Problem details: 117 on admission. Recurrent problem likely related to alcohol abuse 12/06: Sodium 118; start 3% +NS; recheck sodium in 2 hours; goal correction 4-6 meq over 24 hours; continue fluid restriction Status: Acute (2) Rhabdomyolysis: Problem details: Mild, due to prolonged lying on the floor after fall 12/06: Continue IVF; repeat in AM Status: Acute (3) Alcoholism: Problem details: Recommend abstinence. [facility] protocol. Patient is adamant that this is not a problem for her Status: Acute (4) Hypomagnesemia: Problem details: Recurrent problem likely related to alcohol abuse Status: Acute (5) Hypokalemia: Problem details: Recurrent problem likely related to alcohol abuse Status: Acute (6) Multiple rib fractures: Problem details: Probable fractures of left lateral 8th and 9th ribs Status: Acute Assessment and Plan: therapy evaluation pending (7) Fall: Status: Acute (8) Hypertension: Problem details: 12/06 start norvasc Status: Acute Plan anticipate LOS 2-3 days goal sodium above 130 prior to discharge Subjective Date Seen: 12/07/23 Interval history: patient endorses restless legs repeat lactate normal repeat sodium 118 denies headache Exam Narrative: Exam Narrative: Gen: no acute distress HEENT: NCAT EOMI mmm CV: RRR normal s1 s2 Lungs: CTAB Abd: Soft,nt, nd Neuro: Alert, oriented, CN grossly intact; nonfocal screening?exam Psych:decreased muscle mass MSK: age appropriate muscle mass Skin; Warm, dry no rash on face Const: Vital Signs, click to edit/add: Vital Signs - 24 hr 12/06/23 20:33 12/06/23 21:51 12/06/23 23:24 Temperature 97.9 F 97.9 F Pulse Rate [Pulse Oximeter] 88 72 72 Respiratory Rate 16 16 16 Blood Pressure [Le ft Arm] Blood Pressure [Ri ght Upper Arm] 175/99 H 164/82 H 153/88 H Pulse Oximetry 96 96 96 Oxygen Delivery Me thod Room Air Room Air Room Air 12/07/23 00:04 12/07/23 03:00 12/07/23 04:29 Temperature 97.7 F 97.6 F 97.6 F Pulse Rate [Pulse Oximeter] 75 66 71 Respiratory Rate 16 16 16 Blood Pressure [Le ft Arm] 176/88 H 91/42 L 159/84 H Blood Pressure [Ri ght Upper Arm] Pulse Oximetry 100 99 99 Oxygen Delivery Me thod Room Air Room Air Room Air 12/07/23 07:45 12/07/23 07:48 Temperature 97.9 F 97.9 F Pulse Rate [Pulse Oximeter] 73 73 Respiratory Rate 16 16 Blood Pressure [Le ft Arm] 170/88 H 170/88 H Blood Pressure [Ri ght Upper Arm] Pulse Oximetry 100 100 Oxygen Delivery Me thod Room Air Room Air Labs Labs: Laboratory Results - last 24 hr 12/06/23 12/06/23 12/06/23 21:13 21:16 21:25 WBC 11.24 H RBC 3.36 L Hgb 10.3 L Hct 28.0 L MCV 83 MCH 31 MCHC 37 H RDW Coeff of Marilyn 12.9 Plt Count 108 L Neut % (Auto) 87.4 H Lymph % (Auto) 6.[address] [place] % (Auto) 4.6 Eos % (Auto) 0.3 Baso % (Auto) 0.2 Neut # (Auto) 9.80 H Lymph # (Auto) 0.[address] [place] # (Auto) 0.50 Eos # (Auto) 0.00 Baso # (Auto) 0.00 Abs Immat Gran (auto) 0.10 Imm/Tot Granulo (auto) 0.6 Sodium 117 L* Potassium 3.0 L Chloride 83 L Carbon Dioxide 15 L Anion Gap 19 H BUN 10 Creatinine 0.7 Estimated Creat Clear 42.49 Estimated GFR 92 Glucose 91 Lactate 3.6 H Calcium 8.6 Magnesium 1.4 L Total Bilirubin 0.8 AST 57 H ALT 23 Alkaline Phosphatase 105 Total Creatine Kinase 750 H Troponin I < 0.01 L Total Protein 8.0 Albumin 5.3 H Urine Color Yellow Urine Appearance Clear Urine pH 7.0 Ur Specific [place] 1.015 Urine Protein Negative Urine Glucose (UA) Negative Urine Ketones Negative Urine Blood Trace-intact A Urine Nitrite Negative Urine Bilirubin Negative Urine Urobilinogen 0.2 Ur Leukocyte Esterase Negative Urine RBC 0-2 Urine WBC 0-2 Ur Squamous Epith Cells None Urine Bacteria Not Reportable Ethyl Alcohol 0.07 H Lab Acknowledgement Test Added 12/06/23 12/07/23 12/07/23 22:38 04:00 09:42 WBC RBC Hgb Hct MCV MCH MCHC RDW Coeff of Marilyn Plt Count Neut % (Auto) Lymph % (Auto) [place] % (Auto) Eos % (Auto) Baso % (Auto) Neut # (Auto) Lymph # (Auto) [place] # (Auto) Eos # (Auto) Baso # (Auto) Abs Immat Gran (auto) Imm/Tot Granulo (auto) Sodium 118 L* Potassium Chloride Carbon Dioxide Anion Gap BUN Creatinine Estimated Creat Clear Estimated GFR Glucose Lactate 1.8 Calcium Magnesium Total Bilirubin AST ALT Alkaline Phosphatase Total Creatine Kinase Troponin I Total Protein Albumin Urine Color Urine Appearance Urine pH Ur Specific [place] Urine Protein Urine Glucose (UA) Urine Ketones Urine Blood Urine Nitrite Urine Bilirubin Urine Urobilinogen Ur Leukocyte Esterase Urine RBC Urine WBC Ur Squamous Epith Cells Urine Bacteria Ethyl Alcohol Lab Acknowledgement Test Added
[2023-12-07 10:17] LABS: Creatinine* 0.6 mg/dL (0.5-1.5); Est. Creatinine Clearance* 43.39; Estimated Glomerular Filt Rate 96 ml/min
[2023-12-07 10:18] LABS: Anion Gap 12 mEq/L (7-15); Blood Urea Nitrogen* 7 mg/dL (7-30); Calcium* 8.2 mg/dL (8.4-10.6); Carbon Dioxide* 22 mmol/L (20-32); Glucose* 140 mg/dL (60-115); Magnesium* 1.9 mg/dL (1.5-2.6)
[2023-12-07 10:25] LABS: Sodium* 118 mmol/L (135-149)
[2023-12-07 10:52] LABS: Creatine Kinase* 760 U/L (41-117)
[2023-12-07] MEDS: 0.9 % SODIUM CHLORIDE 1000 ml 1,000 ML 75 ML IV (10:58)
[2023-12-07] MEDS: POTASSIUM CHLORIDE 10 MEQ CAPSULE ER 40 MEQ PO (10:58)
[2023-12-07] MEDS: AMLODIPINE 5 MG TABLET PO (11:08)
[2023-12-07 13:51] LABS: Sodium* 118 mmol/L (135-149)
[2023-12-07 14:19] LABS: Free T4 Free Thyroxine* 0.36 ng/dL (0.70-1.85)
--- NOTE | 2023-12-07 15:48 | PC.SOCIAL ---
Discharge planning: workers compensation legal secretary met with pt and her two daughters, Yaneth today. Pt's daughters would like her to go to short-term rehab after her hospital stay. Pt has been at [facility] before and would like to return there again if that it the recommendation from PT/OT. workers compensation legal secretary explained that she will be assessed more over the weekend by PT/OT and we will need to see what their recommendations are for discharge. workers compensation legal secretary talked with the pt's two daughter separately outside of the pt's room, while the pt was taking a nap, and the two daughters expressed that they have concerns for their mother's well being and her drinking. They stated that their mother says that she does not have a problem with alcohol and has never gone to treatment for it nor will she willingly go to treatment for it. workers compensation legal secretary talked with them about filing a [employer] report for their mother with historical information of her drinking habits/patterns. The daughters stated that their mother has been in the hospital several times for falling while home alone and intoxicated and injuring herself. The daughters are interested in having their mother committed for her drinking, so that she has to go to a chemical dependency treatment facility. workers compensation legal secretary will relay this information to the provider on duty that will also be here over the weekend overseeing the pt. Social work to follow-up as needed.
[2023-12-07 16:39] LABS: Potassium* 3.8 mmol/L (3.6-5.1)
[2023-12-07 16:54] LABS: Sodium* 122 mmol/L (135-149)
[2023-12-07] MEDS: GABAPENTIN 300 MG CAPSULE PO (17:46)
--- NOTE | 2023-12-07 18:43 | PC.NURSE ---
Pt alert and oriented. Pt pleasant and cooperative. Pt?s CWAW scores throughout the day are 0700-7;1100-3; 1500-2. Pt had complaints of pain ranging from 5-9; see EMAR for intervention. Pt up with 2 assist with gait belt. Pt up to chair during shift. Pt?s daughters at bedside this afternoon. Pt?s sodium started at 118 and then april to 122- see EMAR for interventions. Pt tolerating regular diet well. Pt's next lab draw for sodium is at 1999.
[2023-12-07 20:17] LABS: Appearance Urine Clear (Clear); Bilirubin Urine Negative (Negative); Blood Urine Negative (Negative); Color Urine Yellow (Yellow); Glucose Urine Negative (Negative); Ketones Urine Negative (Negative); Leukocyte Esterase Urine Negative (Negative); Nitrite Urine Negative (Negative); Protein Urine Trace (Negative); Specific Gravity Urine 1.015 (1.000-1.030); Urobilinogen Urine 0.2 (0.2-1.0)
[2023-12-07] MEDS: CHLORHEXIDINE GLUCONATE 473 ML MOUTHWASH SWISH/SPIT (20:51)
[2023-12-07] MEDS: 5 % DEXTROSE 1000 ML 1,000 ML 50 ML IV (21:07)
[2023-12-07] MEDS: SODIUM CHLORIDE 0.9 % (FLUSH) 10 ML SYRINGE 5 ML IVF (21:19)
[2023-12-07 21:47] LABS: Sodium* 125 mmol/L (135-149)
[2023-12-08] VITALS (10 sets, daily range): BP systolic 144–183; BP diastolic 61–92; PULSE 66–85; RESP 16–20; TEMP 36.3–37.1; O2SAT 97–100
[2023-12-08] MEDS: THIAMINE 100 MG TABLET PO (00:14)
[2023-12-08] MEDS: 5 % DEXTROSE 1000 ML 1,000 ML 200 ML IV ×2 (05:33→19:55)
--- NOTE | 2023-12-08 07:03 | PM.IMPN1 ---
Progress Note: A&P Assessment and plan (1) Hyponatremia: Problem details: 117 on admission. Recurrent problem likely related to alcohol abuse 12/06: Sodium 118; start 3% +NS; recheck sodium in 2 hours; goal correction 4-6 meq over 24 hours; continue fluid restriction 12/07: AM labs still pending; sodium over corrected to 125 and started on D5W, unclear why midnight sodium not collected Status: Acute (2) Hypertension: Problem details: 12/06 start norvasc Status: Acute (3) Alcoholism: Problem details: Recommend abstinence. CIWA protocol. Patient is adamant that this is not a problem for her Status: Acute (4) Rhabdomyolysis: Problem details: Mild, due to prolonged lying on the floor after fall 12/06: Continue IVF; repeat in AM Status: Acute (5) Hypomagnesemia: Problem details: Recurrent problem likely related to alcohol abuse Status: Acute (6) Hypokalemia: Problem details: Recurrent problem likely related to alcohol abuse Status: Acute (7) Multiple rib fractures: Problem details: Probable fractures of left lateral 8th and 9th ribs Status: Acute (8) Hypothyroidism: Problem details: High TSH, Low FT4, T3 pending; started on synthroid on 12/07 Status: Acute Subjective Date Seen: 12/08/23 Interval history: AM labs pending patient sodium over corrected yesterday to 125 and thus started on D5W by cross cover She states she slept better last night no issues with restless legs She states she is thirsty and dry mouth Exam Narrative: Exam Narrative: Gen: no acute distress HEENT: NCAT EOMI mmm CV: RRR normal s1 s2 Lungs: CTAB Abd: Soft,nt, nd Neuro: Alert, oriented, CN grossly intact; nonfocal screening?exam Psych: appropriate affect MSK: decreased muscle mass Skin; Warm, dry no rash on face Const: Vital Signs, click to edit/add: Vital Signs - 24 hr 12/07/23 07:45 12/07/23 07:48 12/07/23 11:02 Temperature 97.9 F 97.9 F 97.5 F L Pulse Rate [Pulse Oximeter] 73 73 71 Respiratory Rate 16 16 14 Blood Pressure [Le ft Arm] 170/88 H 170/88 H 172/81 H Pulse Oximetry 100 100 100 Oxygen Delivery Me thod Room Air Room Air Room Air 12/07/23 11:04 12/07/23 15:19 12/07/23 15:21 Temperature 97.5 F L 97.7 F 97.7 F Pulse Rate [Pulse Oximeter] 71 75 75 Respiratory Rate 14 16 16 Blood Pressure [Le ft Arm] 172/81 H 130/65 130/65 Pulse Oximetry 100 97 97 Oxygen Delivery Nd thod Room Air Room Air Room Air 12/07/23 20:56 12/07/23 20:56 12/07/23 22:49 Temperature 97.7 F 97.7 F Pulse Rate [Pulse Oximeter] 69 69 69 Respiratory Rate 16 16 16 Blood Pressure [Le ft Arm] 153/79 H 153/79 H Pulse Oximetry 96 96 Oxygen Delivery Nd thod Room Air Room Air 12/08/23 00:31 12/08/23 00:31 12/08/23 04:29 Temperature 98.6 F 98.6 F 98.8 F Pulse Rate [Pulse Oximeter] 66 66 70 Respiratory Rate 16 16 16 Blood Pressure [Le ft Arm] 178/92 H 178/92 H 183/88 H Pulse Oximetry 99 99 98 Oxygen Delivery Nd thod Room Air Room Air Room Air Labs Labs: Laboratory Results - last 24 hr 12/07/23 12/07/23 12/07/23 09:42 09:42 09:42 INR 0.99 Sodium 118 L* Cancelled Potassium 3.1 L Cancelled Chloride 84 L Carbon Dioxide Anion Gap BUN Creatinine Estimated Creat Clear Estimated GFR Glucose Lactate Calcium Magnesium Total Creatine Kinase TSH Free T4 Urine Color Urine Appearance Urine pH Ur Specific [place] Urine Protein Urine Glucose (UA) Urine Ketones Urine Blood Urine Nitrite Urine Bilirubin Urine Urobilinogen Ur Leukocyte Esterase 12/07/23 12/07/23 12/07/23 09:42 09:42 09:42 INR Sodium Potassium Chloride Cancelled Carbon Dioxide 22 Cancelled Anion Gap 12 Cancelled BUN 7 Creatinine Estimated Creat Clear Estimated GFR Glucose Lactate Calcium Magnesium Total Creatine Kinase TSH Free T4 Urine Color Urine Appearance Urine pH Ur Specific [place] Urine Protein Urine Glucose (UA) Urine Ketones Urine Blood Urine Nitrite Urine Bilirubin Urine Urobilinogen Ur Leukocyte Esterase 12/07/23 12/07/23 12/07/23 09:42 09:42 09:42 INR Sodium Potassium Chloride Carbon Dioxide Anion Gap BUN Cancelled Creatinine 0.6 Cancelled Estimated Creat Clear 43.39 Cancelled Estimated GFR 96 Glucose Lactate Calcium Magnesium Total Creatine Kinase TSH Free T4 Urine Color Urine Appearance Urine pH Ur Specific [place] Urine Protein Urine Glucose (UA) Urine Ketones Urine Blood Urine Nitrite Urine Bilirubin Urine Urobilinogen Ur Leukocyte Esterase 12/07/23 12/07/23 12/07/23 09:42 09:42 09:42 INR Sodium Potassium Chloride Carbon Dioxide Anion Gap BUN Creatinine Estimated Creat Clear Estimated GFR Cancelled Glucose 140 H Cancelled Lactate 1.8 Calcium 8.2 L Cancelled Magnesium 1.9 Total Creatine Kinase 760 H TSH Free T4 Urine Color Urine Appearance Urine pH Ur Specific [place] Urine Protein Urine Glucose (UA) Urine Ketones Urine Blood Urine Nitrite Urine Bilirubin Urine Urobilinogen Ur Leukocyte Esterase 12/07/23 12/07/23 12/07/23 09:42 12:35 13:17 INR Sodium 129 L 118 L* Potassium Chloride Carbon Dioxide Anion Gap BUN Creatinine Estimated Creat Clear Estimated GFR Glucose Lactate Calcium Magnesium Total Creatine Kinase Cancelled TSH 67.400 H Free T4 0.36 L Urine Color Urine Appearance Urine pH Ur Specific [place] Urine Protein Urine Glucose (UA) Urine Ketones Urine Blood Urine Nitrite Urine Bilirubin Urine Urobilinogen Ur Leukocyte Esterase 12/07/23 12/07/23 12/07/23 16:23 16:23 19:58 INR Sodium Cancelled 122 L* 125 L Potassium 3.8 Chloride Carbon Dioxide Anion Gap BUN Creatinine Estimated Creat Clear Estimated GFR Glucose Lactate Calcium Magnesium Total Creatine Kinase TSH Free T4 Urine Color Urine Appearance Urine pH Ur Specific [place] Urine Protein Urine Glucose (UA) Urine Ketones Urine Blood Urine Nitrite Urine Bilirubin Urine Urobilinogen Ur Leukocyte Esterase 12/07/23 20:00 INR Sodium Potassium Chloride Carbon Dioxide Anion Gap BUN Creatinine Estimated Creat Clear Estimated GFR Glucose Lactate Calcium Magnesium Total Creatine Kinase TSH Free T4 Urine Color Yellow Urine Appearance Clear Urine pH 7.0 Ur Specific [place] 1.015 Urine Protein Trace A Urine Glucose (UA) Negative Urine Ketones Negative Urine Blood Negative Urine Nitrite Negative Urine Bilirubin Negative Urine Urobilinogen 0.2 Ur Leukocyte Esterase Negative
[2023-12-08] MEDS: LEVOTHYROXINE 25 MCG TABLET PO (07:33)
[2023-12-08 07:48] LABS: Chloride* 96 mmol/L (96-114); Sodium* 128 mmol/L (135-149)
[2023-12-08 07:49] LABS: Potassium* 3.6 mmol/L (3.6-5.1)
[2023-12-08 07:51] LABS: Anion Gap 9 mEq/L (7-15); Blood Urea Nitrogen* 6 mg/dL (7-30); Carbon Dioxide* 23 mmol/L (20-32); Creatinine* 0.6 mg/dL (0.5-1.5); Est. Creatinine Clearance* 43.74; Estimated Glomerular Filt Rate 96 ml/min
[2023-12-08 07:52] LABS: Calcium* 9.1 mg/dL (8.4-10.6); Glucose* 98 mg/dL (60-115)
[2023-12-08] MEDS: PANCREALIPASE (12,38,60) CAP 1 CAP PO ×2 (08:15→22:00)
[2023-12-08] MEDS: OXYCODONE 5 MG TABLET PO ×2 (08:15→17:56)
[2023-12-08] MEDS: LIDOCAINE 5% PATCH 1 PATCH TRANSDERMA (08:15)
[2023-12-08] MEDS: MAGNESIUM OXIDE 400 MG TABLET PO (08:16)
[2023-12-08] MEDS: CETIRIZINE HCL 10 MG TABLET PO (08:16)
[2023-12-08] MEDS: MULTIVITAMIN/MINERALS 1 TABLET 1 TAB PO (08:16)
[2023-12-08] MEDS: AMLODIPINE 5 MG TABLET PO (08:16)
[2023-12-08] MEDS: FOLIC ACID 1 MG TABLET PO (08:16)
[2023-12-08] MEDS: SERTRALINE 100 MG TABLET PO (08:16)
--- NOTE | 2023-12-08 08:23 | PC.NURSE ---
Pt alert and oriented x3. Afebrile. Pt reports 5/10 pain in left lower back, left leg and ribs, pain managed with PRN medication. Pt is up A1 with walker and gait belt. Pt slept throughout most of night. Pt placed on D5 per Dr. Marroquin orders due to rising Sodium.
[2023-12-08] MEDS: 5 % DEXTROSE 1000 ML 1,000 ML 300 ML IV (09:01)
[2023-12-08 11:52] LABS: Basophils Absolute Auto 0.03 K/uL (0.00-0.30); Basophils Percent Auto 0.4 % (0.0-3.0); Eosinophils Absolute Auto 0.29 K/uL (0.00-0.50); Eosinophils Percent Auto 4.1 % (0.0-7.0); Hematocrit 28.2 % (33.0-51.0); Hemoglobin* 9.8 gm/dL (12.0-16.0); Immature Granulocytes Abs Auto 0.05 K/uL (0.00-0.30); Immature Granulocytes Pct Auto 0.7 %; Lymphocytes Percent Auto 14.8 % (20-44); Mean Corpuscular HGB Conc 35 gm/dL (32-36); Mean Corpuscular Hemoglobin 31 pg (26-34); Mean Corpuscular Volume 88 fL (80-100); Monocytes Percent Auto 7.4 % (0.0-11.0); Neutrophils Percent Auto 72.6 % (42.0-72.0); Platelet Count* 122 K/uL (140-440); RDW Coefficient of Variation % 13.6 % (11.5-15.5); Red Blood Count 3.21 m/uL (4.00-5.20); White Blood Count* 7.16 K/uL (4.50-11.00)
[2023-12-08 12:03] LABS: Sodium* 126 mmol/L (135-149)
[2023-12-08 13:20] LABS: Slide Review Reflex No
[2023-12-08] MEDS: GABAPENTIN 300 MG CAPSULE PO (17:52)
[2023-12-08] MEDS: ACETAMINOPHEN 500 MG TABLET PO (17:57)
[2023-12-08 18:49] LABS: Sodium* 131 mmol/L (135-149)
--- NOTE | 2023-12-08 19:38 | PC.NURSE ---
Pt alert and oriented. Pt pleasant and cooperative. Pt?s CWAW scores throughout the day are 0700-1;1100-1; 1500-0. Pt had complaints of pain ranging from 3-8; see EMAR for intervention. Pt up with SBA with gait belt. Pt up to chair during shift. Pt?s sodium was 126 at noon; Per MD goal to be around 126 but no higher than 129. Pt?s sodium at 1800 was 131- awaiting new orders.
[2023-12-08] MEDS: ROPINIROLE HCL 0.25 MG TABLET PO (22:01)
[2023-12-08] MEDS: LORazepam 0.5 MG TABLET PO (22:02)
[2023-12-09] VITALS (9 sets, daily range): BP systolic 120–177; BP diastolic 67–94; PULSE 68–86; RESP 16–18; TEMP 36.3–36.6; O2SAT 96–98
[2023-12-09 00:36] LABS: Chloride* 95 mmol/L (96-114); Potassium* 3.9 mmol/L (3.6-5.1); Sodium* 128 mmol/L (135-149)
[2023-12-09 00:39] LABS: Anion Gap 6 mEq/L (7-15); Blood Urea Nitrogen* 11 mg/dL (7-30); Carbon Dioxide* 27 mmol/L (20-32); Creatinine* 0.6 mg/dL (0.5-1.5); Est. Creatinine Clearance* 43.74; Estimated Glomerular Filt Rate 96 ml/min; Glucose* 107 mg/dL (60-115)
[2023-12-09 00:40] LABS: Calcium* 9.2 mg/dL (8.4-10.6)
[2023-12-09] MEDS: THIAMINE 100 MG TABLET PO (00:50)
[2023-12-09 01:41] LABS: Sodium* 129 mmol/L (135-149)
[2023-12-09] MEDS: LEVOTHYROXINE 25 MCG TABLET PO (04:50)
--- NOTE | 2023-12-09 06:17 | PC.NURSE ---
Patient pleasant, alert and oriented. 5% Dextrose solution infused per MD orders last evening. Sodium level at 0000 was 128. Patient denied pain during night.?
--- NOTE | 2023-12-09 07:08 | P.IMPN_ITS ---
Progress Note: A&P Assessment and plan (1) Fall: Problem details: suspected mechanical fall Status: Acute (2) Hyponatremia: Problem details: 117 on admission. Recurrent problem likely related to alcohol abuse 12/06: Sodium 118; start 3% +NS; recheck sodium in 2 hours; goal correction 4-6 meq over 24 hours; continue fluid restriction 12/07: AM labs still pending; sodium over corrected to 125 and started on D5W, unclear why midnight sodium not collected 12/08: Sodium 129 all IVF stopped continue fluid restriction Status: Acute (3) Hypothyroidism: Problem details: High TSH, Low FT4, T3 pending; started on synthroid on 12/07 Status: Acute (4) Rhabdomyolysis: Problem details: Mild, due to prolonged lying on the floor after fall 12/06: Continue IVF; repeat in AM 12/08: CK trending down Status: Acute (5) Alcoholism: Problem details: Recommend abstinence. [facility] protocol. Patient is adamant that this is not a problem for her Status: Acute (6) Hypertension: Problem details: 12/06 start norvasc Status: Acute (7) Multiple rib fractures: Problem details: Probable fractures of left lateral 8th and 9th ribs Status: Acute (8) Hypomagnesemia: Problem details: Recurrent problem likely related to alcohol abuse Status: Acute (9) Hypokalemia: Problem details: Recurrent problem likely related to alcohol abuse Status: Acute Plan continue therapy; MOCA assessment tomorrow; recheck Sodium in AM continue fluid restriction Subjective Date Seen: 12/09/23 Interval history: no acute events overnight continues to have backpain tolerating diet Sodium 131>128>129 Exam Narrative: Exam Narrative: Gen: no acute distress HEENT: NCAT EOMI mmm CV: RRR normal s1 s2 Lungs: CTAB Abd: Soft,nt, nd Neuro: Alert,CN grossly intact; nonfocal screening?exam Psych: appropriate affect MSK: age appropriate muscle mass Skin; Warm, dry no rash on face Const: Vital Signs, click to edit/add: Vital Signs - 24 hr 12/08/23 07:52 12/08/23 07:54 12/08/23 11:24 Temperature 97.6 F 97.6 F 98.3 F Pulse Rate [Pulse Oximeter] 68 68 85 Respiratory Rate 16 16 16 Blood Pressure [Le ft Arm] 170/78 H 170/78 H 175/85 H Pulse Oximetry 99 99 100 Oxygen Delivery Me thod Room Air Room Air Room Air 12/08/23 11:26 12/08/23 14:29 12/08/23 14:31 Temperature 98.3 F 97.4 F L 97.4 F L Pulse Rate [Pulse Oximeter] 85 72 72 Respiratory Rate 16 16 16 Blood Pressure [Le ft Arm] 175/85 H 144/61 H 144/61 H Pulse Oximetry 100 97 97 Oxygen Delivery Me thod Room Air Room Air Room Air 12/08/23 19:00 12/08/23 22:04 12/09/23 03:00 Temperature 97.6 F 97.7 F 97.4 F L Pulse Rate [Pulse Oximeter] 72 72 68 Respiratory Rate 20 18 18 Blood Pressure [Le ft Arm] 149/66 H 156/88 H 156/79 H Pulse Oximetry 97 99 96 Oxygen Delivery Me thod Room Air Room Air Room Air Labs Labs: Laboratory Results - last 24 hr 12/07/23 12/08/23 12/08/23 12:35 00:54 05:49 WBC RBC Hgb Hct MCV MCH MCHC RDW Coeff of Mairlyn Plt Count Neut % (Auto) Lymph % (Auto) [place] % (Auto) Eos % (Auto) Baso % (Auto) Neut # (Auto) Lymph # (Auto) [place] # (Auto) Eos # (Auto) Baso # (Auto) Abs Immat Gran (auto) Imm/Tot Granulo (auto) Sodium Cancelled 129 L 128 L Potassium 3.6 Chloride 96 Carbon Dioxide 23 Anion Gap 9 BUN 6 L Creatinine 0.6 Estimated Creat Clear 43.74 Estimated GFR 96 Glucose 98 Calcium 9.1 12/08/23 12/08/23 12/09/23 11:40 18:23 00:00 WBC 7.16 RBC 3.21 L Hgb 9.8 L Hct 28.2 L MCV 88 MCH 31 MCHC 35 RDW Coeff of Marilyn 13.6 Plt Count 122 L Neut % (Auto) 72.6 H Lymph % (Auto) 14.8 L [place] % (Auto) 7.4 Eos % (Auto) 4.1 Baso % (Auto) 0.4 Neut # (Auto) 5.20 Lymph # (Auto) 1.10 [place] # (Auto) 0.50 Eos # (Auto) 0.29 Baso # (Auto) 0.03 Abs Immat Gran (auto) 0.05 Imm/Tot Granulo (auto) 0.7 Sodium 126 L 131 L 128 L Potassium 3.9 Chloride 95 L Carbon Dioxide 27 Anion Gap 6 L BUN 11 Creatinine 0.6 Estimated Creat Clear 43.74 Estimated GFR 96 Glucose 107 Calcium 9.2
[2023-12-09 07:18] LABS: Hematocrit 27.9 % (33.0-51.0); Hemoglobin* 9.4 gm/dL (12.0-16.0); Mean Corpuscular HGB Conc 34 gm/dL (32-36); Mean Corpuscular Hemoglobin 30 pg (26-34); Mean Corpuscular Volume 90 fL (80-100); Platelet Count* 124 K/uL (140-440); Red Blood Count 3.09 m/uL (4.00-5.20); White Blood Count* 5.46 K/uL (4.50-11.00)
[2023-12-09 07:28] LABS: Slide Review Reflex No
[2023-12-09 07:29] LABS: Chloride* 96 mmol/L (96-114); Sodium* 129 mmol/L (135-149)
[2023-12-09 07:30] LABS: Potassium* 3.5 mmol/L (3.6-5.1)
[2023-12-09 07:32] LABS: Anion Gap 10 mEq/L (7-15); Carbon Dioxide* 23 mmol/L (20-32); Creatinine* 0.6 mg/dL (0.5-1.5); Est. Creatinine Clearance* 44.12; Estimated Glomerular Filt Rate 96 ml/min
[2023-12-09 07:33] LABS: Blood Urea Nitrogen* 9 mg/dL (7-30); Calcium* 9.4 mg/dL (8.4-10.6); Glucose* 99 mg/dL (60-115)
[2023-12-09 08:00] LABS: Creatine Kinase* 298 U/L (41-117)
[2023-12-09] MEDS: PANCREALIPASE (12,38,60) CAP 1 CAP PO ×2 (09:12→20:56)
[2023-12-09] MEDS: LIDOCAINE 5% PATCH 1 PATCH TRANSDERMA (09:12)
[2023-12-09] MEDS: FOLIC ACID 1 MG TABLET PO (09:12)
[2023-12-09] MEDS: MULTIVITAMIN/MINERALS 1 TABLET 1 TAB PO (09:12)
[2023-12-09] MEDS: SERTRALINE 100 MG TABLET PO (09:12)
[2023-12-09] MEDS: CETIRIZINE HCL 10 MG TABLET PO (09:12)
[2023-12-09] MEDS: MAGNESIUM OXIDE 400 MG TABLET PO (09:12)
[2023-12-09] MEDS: AMLODIPINE 5 MG TABLET PO (09:12)
[2023-12-09] MEDS: SODIUM CHLORIDE 0.9 % (FLUSH) 10 ML SYRINGE 5 ML IVF ×2 (09:13→21:05)
[2023-12-09] MEDS: POTASSIUM CHLORIDE 10 MEQ CAPSULE ER 40 MEQ PO (12:57)
--- NOTE | 2023-12-09 14:48 | PC.NURSE ---
(7-15) Pt alert and oriented. Pt pleasant and cooperative. Pt?s CWAW scores throughout the day were 0. Pt had complaints of pain ranging from 4. Pt up independently in room. Pt slept most of the AM. Pt?s family at bedside during afternoon.?Pt possible discharge tomorrow.
[2023-12-09] MEDS: OXYCODONE 5 MG TABLET PO ×2 (14:56→21:04)
[2023-12-09 15:05] LABS: Urine Osmolality 280 mOsm/kg (50-800)
--- NOTE | 2023-12-09 17:41 | PC.NURSE ---
Shift Summary: Patient pleasant and cooperative. Up in room independently, daughter here this afternoon. Tolerating regular diet. Vitals stable, denies SOB.
[2023-12-09] MEDS: ACETAMINOPHEN 500 MG TABLET PO (19:18)
[2023-12-09] MEDS: GABAPENTIN 300 MG CAPSULE PO (19:18)
[2023-12-09] MEDS: ROPINIROLE HCL 0.25 MG TABLET PO (20:55)
[2023-12-09] MEDS: LORazepam 0.5 MG TABLET PO (21:01)
[2023-12-09 22:31] LABS: Free T3 1.7 pg/mL (2.5-4.3)
[2023-12-10 03:37] VITALS: BP 130/59; PULSE 67; RESP 14; O2SAT 94
[2023-12-10] MEDS: LEVOTHYROXINE 25 MCG TABLET PO (06:15)
[2023-12-10 06:24] LABS: Hematocrit 26.7 % (33.0-51.0); Hemoglobin* 8.9 gm/dL (12.0-16.0); Mean Corpuscular HGB Conc 33 gm/dL (32-36); Mean Corpuscular Hemoglobin 31 pg (26-34); Mean Corpuscular Volume 92 fL (80-100); Platelet Count* 120 K/uL (140-440); White Blood Count* 6.12 K/uL (4.50-11.00)
--- NOTE | 2023-12-10 06:30 | PC.NURSE ---
Pt pleasant and conversational. See MAR for HS meds to aid in sleeping per pt request. Pt states she wishes to return home today and therefore denies need for meds to aid in BM.
[2023-12-10 06:32] LABS: Slide Review Reflex No
[2023-12-10 06:42] LABS: Chloride* 102 mmol/L (96-114); Sodium* 134 mmol/L (135-149)
[2023-12-10 06:44] LABS: Creatinine* 0.8 mg/dL (0.5-1.5); Est. Creatinine Clearance* 43.37; Estimated Glomerular Filt Rate 79 ml/min
[2023-12-10 06:45] LABS: Anion Gap 8 mEq/L (7-15); Blood Urea Nitrogen* 13 mg/dL (7-30); Carbon Dioxide* 24 mmol/L (20-32)
[2023-12-10 06:46] LABS: Calcium* 9.5 mg/dL (8.4-10.6); Glucose* 97 mg/dL (60-115)
[2023-12-10 09:12] VITALS: BP 112/60; PULSE 80; RESP 16; TEMP 36.7; O2SAT 97
[2023-12-10] MEDS: OXYCODONE 5 MG TABLET PO (09:31)
[2023-12-10] MEDS: AMLODIPINE 5 MG TABLET PO (09:31)
[2023-12-10] MEDS: MULTIVITAMIN/MINERALS 1 TABLET 1 TAB PO (09:32)
[2023-12-10] MEDS: MAGNESIUM OXIDE 400 MG TABLET PO (09:33)
[2023-12-10] MEDS: SODIUM CHLORIDE 0.9 % (FLUSH) 10 ML SYRINGE 5 ML IVF (09:33)
[2023-12-10] MEDS: FOLIC ACID 1 MG TABLET PO (09:33)
[2023-12-10] MEDS: PANCREALIPASE (12,38,60) CAP 1 CAP PO (09:33)
[2023-12-10] MEDS: SERTRALINE 100 MG TABLET PO (09:33)
[2023-12-10] MEDS: CETIRIZINE HCL 10 MG TABLET PO (09:33)
[2023-12-10 12:02] VITALS: BP 155/72; PULSE 85; RESP 16; TEMP 36.8; O2SAT 96
--- NOTE | 2023-12-10 12:54 | P.DS_ITS ---
DS: Providers Provider Date Seen: 12/10/23 Date of admission: 12/07/23 00:07 Primary care physician: Jodi Mabry DO Admitting Clinician: Alexandre Srivastava MD Consults: 12/07/23 00:24 Consult to Physical Therapy [CONS] Routine Comment: Reason(s) for PT Consult:: Recent Falls Any Restrictions?:: No Restrictions 12/07/23 00:25 Consult to Occupational Therapy [CONS] Routine Comment: Reason(s) for OT Consult:: Evaluate and Treat Any Restrictions?:: No Restrictions Consult to Physical Therapy [CONS] Routine Comment: Reason(s) for PT Consult:: Evaluate and Treat Any Restrictions?:: No Restrictions Attending Physician on discharge: ELA Quinn, MANDY [facility] Date of Discharge: 12/10/23 DS: Diagnosis Discharge Diagnosis (1) Fall: Status: Acute Problem details: Suspected mechanical fall resulting in rhabdomyolysis, CK trending down prior to discharge, rib fractures managed with oral pain medication and lidocaine patch. Blood alcohol on admission 0.07. (2) Hyponatremia: Status: Acute Problem details: Sodium 117 on admission, suspected related to chronic alcohol use. Started on 3% normal saline with scheduled sodium checks, goal correction 4-6 mEq over 24 hours. Fluid restriction was in place. Sodium trended up, initially over correcting to 125, patient then was started on D5W. Recheck of sodium 129. IV fluids were discontinued. Patient remained on fluid restriction. Sodium at time of discharge 134. Discussed continuing to sustain from alcohol use upon discharge. (3) Hypothyroidism: Status: Acute Problem details: High TSH, Low FT4, T3 1.7; started on synthroid on 12/07. Outpatient follow-up with PCP for ongoing management. (4) Rhabdomyolysis: Status: Acute Problem details: Mild, due to prolonged lying on the floor after fall. Initial CK 750, initiated on IVF, trended down to 298 prior to discharge. (5) Alcoholism: Status: Acute Problem details: Recommend abstinence. Patient remained adamant that this is not a problem for her and that she only drinks when she is bored but will be fine when she returns home to her usual setting. (6) Hypertension: Status: Acute Problem details: Started on amlodipine on 12/07/2023. Outpatient follow-up with PCP for further management (7) Multiple rib fractures: Status: Acute Problem details: Rib films show Suspected nondisplaced fracture of the left lateral 9th rib. There is some cortical irregularity of the left anterolateral 8th rib, may be an acute, nondisplaced fracture. Likely sequela of remote, healed left anterolateral 7th rib fracture. On discharge, recommending management with OTC lidocaine patches, ice and/or heat, Tylenol or ibuprofen. Would avoid narcotics. (8) Hypomagnesemia: Status: Acute Problem details: Recurrent problem likely related to alcohol abuse. Managed with oral magnesium oxide replacement. (9) Hypokalemia: Status: Acute Problem details: Recurrent problem likely related to alcohol abuse. Managed with oral potassium replacement. Follow up with outpatient PCP. DS: Summary Hospital Course Hospital Course: [age] year old female past medical history significant for alcohol use disorder, squamous cell carcinoma of mandible, pancreatic insufficiency was admitted to the medical floor for further management fall resulting in rhabdomyolysis and rib fractures. Course of care and details as noted above. Management as above. Physical therapy consulted, recommending outpatient PT. this can be completed with [facility]. Occupational therapy was consulted, [place] . Recommending outpatient occupational therapy for further cognitive assessment. It is recommended to the patient and her daughter that she does NOT DRIVE until further assessment by her PCP. Continue to sustain from alcohol use. Remainder of chronic medical comorbidities were monitored and managed with home medications. Status at Discharge Overall status at discharge: patient is back to baseline Time Spent with Patient Time attestation: Total time spent providing and/or coordinating discharge services: Time spent: Greater than 30 minutes Exam Narrative: Exam Narrative: PHYSICAL EXAM General: Pleasant, conversant, NAD Cardiovascular: RRR Pulmonary: No dyspnea Neurological: Alert, answering questions appropriately Skin: Warm, dry. Const: Vital Signs, click to edit/add: Vital Signs - 24 hr 12/09/23 14:58 12/09/23 15:00 12/09/23 19:45 Temperature 97.9 F 97.9 F 97.8 F Pulse Rate [Pulse Oximeter] 77 77 86 Respiratory Rate 18 18 18 Blood Pressure [Le ft Arm] 151/90 H 151/90 H 120/69 Pulse Oximetry 98 98 97 Oxygen Delivery Me thod Room Air Room Air Room Air 12/09/23 23:00 12/09/23 23:00 06/16/24 23:00 Temperature 97.8 F Pulse Rate [Pulse Oximeter] 74 74 74 Respiratory Rate 16 16 16 Blood Pressure [Le ft Arm] 126/67 126/67 Pulse Oximetry 96 96 Oxygen Delivery Me thod Room Air Room Air 12/10/23 03:37 12/10/23 09:12 12/10/23 12:02 Temperature 98.1 F 98.2 F Pulse Rate [Pulse Oximeter] 67 80 85 Respiratory Rate 14 16 16 Blood Pressure [Le ft Arm] 130/59 L 112/60 155/72 H Pulse Oximetry 94 97 96 Oxygen Delivery Me thod Room Air Room Air Room Air DS: Data Data Completed and Pending Labs on day of discharge: Labs from last 24 hours 12/10/23 12/07/23 12/07/23 06:01 20:00 13:00 WBC 6.12 RBC 2.90 L Hgb 8.9 L Hct 26.7 L MCV 92 MCH 31 MCHC 33 Plt Count 120 L Sodium 134 L Potassium 4.0 Chloride 102 Carbon Dioxide 24 Anion Gap 8 BUN 13 Creatinine 0.8 Estimated Creat Clear 43.37 Estimated GFR 79 Glucose 97 Serum Osmolality 251 L Calcium 9.5 Free T3 pg/dL Ur Random Osmolality 280 12/07/23 12:59 WBC RBC Hgb Hct MCV MCH MCHC Plt Count Sodium Potassium Chloride Carbon Dioxide Anion Gap BUN Creatinine Estimated Creat Clear Estimated GFR Glucose Serum Osmolality Calcium Free T3 pg/dL 1.7 L Ur Random Osmolality Imaging Femur x-ray: Attestation: I have reviewed the pertinent imaging results. My impression: TECHNIQUE: Femur radiograph 2 views on 4 films left COMPARISON: None FINDINGS: Bone: No acute fractures or aggressive bone lesions are identified. Joint: The hip and visualized knee joints are unremarkable in appearance. No significant joint effusion is seen. Soft tissue: Unremarkable. No radiopaque foreign bodies are seen. IMPRESSION: 1. No acute osseous injuries or abnormalities are noted. CT scan - head: Attestation: I have reviewed the pertinent imaging results. Radiologist's impression: Non-contrast CT of the head is submitted. No comparisons. FINDINGS: The ventricles, sulci and gyri are of normal size, shape and contour. Midline structures are centrally located. No convincing evidence of intra- or extra-axial fluid collections. IMPRESSION: 1. No radiographic evidence of acute intracranial abnormalities. Rib x-ray: Attestation: I have reviewed the pertinent imaging results. Radiologist's impression: Frontal view of the chest and frontal and oblique views of the left ribs Comparison: None Findings/impression : Suspected nondisplaced fracture of the left lateral 9th rib. There is some cortical irregularity of the left anterolateral 8th rib, may be an acute, nondisplaced fracture. Likely sequela of remote, healed left anterolateral 7th rib fracture. Severe compression fracture deformity of the L2 vertebral body. The cardiomediastinal silhouette and pulmonary vasculature are unremarkable. There is no focal airspace consolidation, pleural effusion, or pneumothorax. Hip x-ray: Attestation: I have reviewed the pertinent imaging results. Radiologist's impression: TECHNIQUE: Pelvis radiograph, Hip radiograph 3 views left COMPARISON: None FINDINGS: Bone: No acute fractures or aggressive bone lesions are identified. Joint: The hip joints are unremarkable. The visualized sacroiliac joints are unremarkable in appearance. The pubic symphysis is normal in appearance. Soft tissue: Bilateral tubal ligation clips are noted. The visualized bowel gas pattern of the pelvis is unremarkable in appearance. No radiopaque foreign bodies are seen. IMPRESSION: 1. No acute osseous injuries or abnormalities are noted. Discharge Plan Discharge Disposition: Home, Self-Care Date of Admission: 12/07/23 00:07 Attending Provider on Discharge: Amarilis Brewster Primary Care Provider: Jodi aMbry Condition: Stable Anticipated Discharge Date/Time: 12/10/23 12:33 Discharge Medications: New amlodipine 5 mg Tablet 5 mg PO DAILY Qty: 60 0RF levothyroxine 25 mcg Tablet 25 mcg PO DAILY@0600 Qty: 60 0RF lidocaine 5 % Adhesive Patch,Medicated 1 patch transdermal Q24H Qty: 15 0RF Continued sertraline 100 mg tablet 100 mg PO DAILY lorazepam 0.5 mg tablet 0.5 mg PO Q6H PRN Creon 12,000-38,000 -60,000 unit capsule,delayed release(DR/EC) 1 cap PO BID tizanidine 2 mg tablet 2 mg PO 3XD acetaminophen 500 mg tablet 500 mg PO Q4H PRN famotidine [Acid Chimney Mechanic (famotidine)] 10 mg tablet 10 mg PO DAILY PRN (Reason: heartburn) cetirizine 10 mg tablet 10 mg PO DAILY gabapentin 300 mg capsule 300 mg PO QPM chlorhexidine gluconate 0.12 % mouthwash 5 ml PO QID cholecalciferol (vitamin D3) 25 mcg (1,000 unit) tablet 25 mcg PO DAILY Certavite-Antioxidant 18-400 mg-mcg tablet 1 tab PO DAILY Discharge Orders: Discharge Order (Routine); Ordered 12/10/23 Ordered By: Amarilis Brewster Patient Education: Levothyroxine (By mouth), Amlodipine (By mouth), Lidocaine (Into the skin), Rib Fracture (GEN), Hyponatremia (GEN), Hypothyroidism (GEN), Abuse of Alcohol (GEN) Additional Instructions: Outpatient [facility]. Physical Therapy. Occupational Therapy for additional cognitive evaluation. It is recommended you continue with outpatient physical therapy as well as outpatient occupational therapy for further cognitive evaluation. DO NOT DRIVE until further evaluation and clearance by your PCP. Your sodium can get dangerously low when drinking alcohol. Continue to sustain from drinking. Your blood pressure has been high so amlodipine has been added to your medication regimen. Follow-up with your PCP for ongoing medication management. You have been started on levothyroxine for abnormal thyroid lab results. Follow-up with your PCP for ongoing management. For your rib fractures - you may use [id number] lidocaine patches, Tylenol, or ibuprofen. Ice and/or heat to the area may help as well. Use a pillow or other soft object to splint while coughing. Continue to use your incentive spirometer. Activity Level: Activity as Tolerated Activity Detail: Per PT Discharge Diet: Regular Follow Up Appointments: Jodi Mabry DO [Primary Care Provider] - 12/14/23 1:00 pm (Post hospital follow-up 3-5 days, hyponatremia, alcohol misuse, fall, rhabdomyolysis, rib fracture, hypertension management, hypothyroidism- started on levothyroxine, Raghavendra Llamas, is not available Dr. Olson will see ) Forms: [employer] Info Instructions
--- NOTE | 2023-12-10 13:34 | REH.PT ---
Patient without physical therapy services yesterday, 12/09/23. Per discussion with Jacky Galvez, PT, DPT, who was working on 12/09/23 patient refused PT services upon multiple attempts throughout the day yesterday. Will continue current PT POC when patient is agreeable.
--- NOTE | 2023-12-10 15:38 | PC.SOCIAL ---
Addendum entered by MELL Landin 12/10/23 16:06: Discharge planning: [facility] report filed. Report #[id number]. Social work to follow-up as needed. Original Note: Discharge planning: Pt does not qualify for short-term rehab due to her good mobility and strength that she regained back over the weekend and will discharge home today. Pt did state that she was open to doing PT/OT with [facility] at [facility] where she lives. ostrich farm worker did set-up PT/OT through [facility] at the [facility]. The provider on duty wrote the orders with the pt's discharge. ostrich farm worker faxed the referral to [facility] at #[phone]. ostrich farm worker also gave the pt a copy of The Important Message from Medicare form and explained the process of appealing her discharge with Medicare. Pt does not plan to appeal her discharge and is happy with her discharge plan. Social work to follow-up as needed.
--- NOTE | 2023-12-10 15:58 | PC.APCO ---
Discharge planning: brewery cellar worker did file a vulnerable adult report with [facility] on behalf of the pt. Report #[id number]. Social work to follow-up as needed.
--- NOTE | 2023-12-10 16:41 | PC.NURSE ---
Discharge Note: The patient discharged back to [facility] independent living facility with her daughter Sherrie. Discharge instructions regarding follow up, fall, alcohol use and pain management were explained to the patient. Hand outs were also given. The patients IV was removed. R knee rug burn was covered with gauze and a bandage for patients comfort. Dianna POLANCO BSN
== END 2023-12-10 14:36 | disposition home or self-care (01) | DRG 641 ==
LOC: ED 22:45 → MEDSURG 23:22
PROVIDERS: Family Medicine; Hospitalist; Admitting Provider Family Medicine; Emergency Provider Family Medicine; PCP Family Medicine; Visit Provider Family Medicine
DX: E87.1 Hypo-osmolality and hyponatremia (principal); M62.82 Rhabdomyolysis; S22.42XA Multiple fractures of ribs, left side, initial encounter for closed fracture; F10.239 Alcohol dependence with withdrawal, unspecified; Y90.3 Blood alcohol level of 60-79 mg/100 ml; E83.42 Hypomagnesemia; E87.6 Hypokalemia; R53.1 Weakness; W19.XXXA Unspecified fall, initial encounter; Y92.009 Unspecified place in unspecified non-institutional (private) residence as the place of occurrence of the external cause; G25.81 Restless legs syndrome; I10 Essential (primary) hypertension; E03.9 Hypothyroidism, unspecified; K86.89 Other specified diseases of pancreas
CPT/HCPCS: 36415; 70450; 71101; 73502; 73552; 80048; 80053; 81001; 81003; 82077; 82550; 83605; 83735; 83930; 83935; 84132; 84295; 84439; 84443; 84481; 84484; 85025; 85027; 85610; 97110; 97116; 97162; 97165; 97530; 97535; 99285; A9153; A9270; J3475; J7030; J7042; J7050; J7070; J7131

== ENCOUNTER 2025-03-04 15:00 | Outpatient (RCR) | payer MEDICARE, BC, SELFPAY | END 2025-04-20 14:59 | disposition home or self-care (01) | PROVIDERS: PCP Family Medicine; Visit Provider Family Medicine | DX: M75.81 Other shoulder lesions, right shoulder (principal); Z51.89 Encounter for other specified aftercare | CPT/HCPCS: 97110; 97140; 97161 ==

== ENCOUNTER 2025-06-13 21:16 | Outpatient (CLI) | payer MEDICARE, BC, SELFPAY | END 2025-06-13 21:17 | disposition home or self-care (01) | LOC: AMB 06-22 02:21 | PROVIDERS: PCP Family Medicine; Visit Provider Family Medicine | DX: S29.9XXA Unspecified injury of thorax, initial encounter (principal); S09.90XA Unspecified injury of head, initial encounter; W18.30XA Fall on same level, unspecified, initial encounter; Y92.009 Unspecified place in unspecified non-institutional (private) residence as the place of occurrence of the external cause | CPT/HCPCS: A0425; A0433 ==